=== PATIENT | male | born 1975 | race Caucasian/White ===

== ENCOUNTER 2021-01-07 14:22 | Outpatient (REF) | payer OTHER, SELFPAY ==
[2021-01-07 16:41] LABS: Hematocrit 38.6 % (42-52); Mean Corpuscular HGB Conc 33.7 g/dl (31.0-36.0); Mean Corpuscular Hemoglobin 30.9 pg (27.0-33.0); Mean Corpuscular Volume 91.7 fL (80-98); Mean Platelet Volume 10.5 fL (9.4-12.4); Platelet Count 228 X10*3/uL (160-400); Red Blood Count 4.21 X10*6/uL (4.60-5.80); Red Cell Distribution Width 13.2 % (11.0-16.0); White Blood Count 6.5 X10*3/uL (4.8-10.8)
[2021-01-07 17:08] LABS: Alanine Aminotransferase 22 U/L (0-40); Albumin Level 4.7 g/dL (3.5-5.0); Alkaline Phosphatase 58 U/L (39-117); Anion Gap 13 (12-20); Aspartate Amino Transferase 27 U/L (5-37); Bilirubin Total 1.1 mg/dL (0.0-1.0); Blood Urea Nitrogen 17 mg/dL (9-16); Calcium 9.6 mg/dL (8.4-10.2); Carbon Dioxide 27 mmol/L (22-29); Chloride 103 mmol/L (96-108); Cholesterol 235 mg/dL; Estimated Glomerular Filt Rate > 60; Glucose Fasting 87 mg/dL (60-99); HDL Cholesterol 54 mg/dL; LDL Cholesterol Calculated 170 mg/dl; Potassium 3.6 mmol/L (3.3-5.1); Sodium 139 mmol/L (135-145); Total Protein 7.5 g/dL (6.5-8.0); Triglycerides 57 mg/dL; Uric Acid 8.3 mg/dL (3.4-7.0)
== END 2021-01-07 14:23 | disposition home or self-care (01) ==
LOC: HO.HMGCLDS 14:22
PROVIDERS: PCP Internal Medicine; Visit Provider Internal Medicine
DX: E78.5 Hyperlipidemia, unspecified (principal); I10 Essential (primary) hypertension
CPT/HCPCS: 36415; 80053; 80061; 84550; 85027

== ENCOUNTER 2021-02-26 15:07 | Outpatient (REF) | payer OTHER, SELFPAY ==
--- NOTE | ~2021-02-26 | XR_ITS ---
EXAMINATION: XR THORACOLUMBAR SPINE CLINICAL INFORMATION: Back pain COMPARISON: None TECHNIQUE: AP and lateral views of the thoracic spine FINDINGS: Normal alignment and thoracic kyphosis with mild to moderate multilevel degenerative disc disease. No fracture. No bone lesion is evident. XR/XR thoracic spine 2V IMPRESSION: Mild to moderate multilevel degenerative disc disease. Normal alignment.
== END 2021-02-26 15:08 | disposition home or self-care (01) ==
LOC: HO.HMGCX 15:07
PROVIDERS: PCP Internal Medicine; Visit Provider Internal Medicine
DX: M54.9 Dorsalgia, unspecified (principal); R10.9 Unspecified abdominal pain
CPT/HCPCS: 72070

== ENCOUNTER 2021-03-06 09:47 | Outpatient (REF) | payer OTHER, SELFPAY ==
--- NOTE | ~2021-03-06 | US_ITS ---
EXAMINATION: US ABDOMEN COMPLETE CLINICAL INFORMATION: Abdominal pain. Left flank pain. COMPARISON: None TECHNIQUE: Real-time imaging of the abdominal viscera. FINDINGS: PANCREAS: Not well visualized. ABDOMINAL AORTA: The proximal, mid, and distal segments are normal in caliber. INFERIOR VENA CAVA: Visualized portions are normal. LIVER: Normal. The liver is normal in size. The liver contour is normal. Parenchymal echogenicity is normal. No focal hepatic lesion. There is no intrahepatic biliary duct dilatation seen. GALLBLADDER: Normal. The gallbladder is physiologically distended without evidence of stones, sludge, polyps, wall thickening or pericholecystic fluid. COMMON BILE DUCT: Normal in caliber measuring 0.31 cm in diameter. RIGHT KIDNEY: Normal. No hydronephrosis. No renal calculi or focal parenchymal lesions. The kidney measures 11.8 cm in maximum dimension. LEFT KIDNEY: Normal. No hydronephrosis. No renal calculi or focal parenchymal lesions. The kidney measures 11.3 cm in maximum dimension. SPLEEN: Normal. The spleen measures 10.9 cm in maximum dimension. FREE FLUID: None. US/US abdomen complete IMPRESSION: Limited visualization of the pancreas otherwise unremarkable exam. No renal stone seen.
== END 2021-03-06 09:48 | disposition home or self-care (01) ==
LOC: HO.HMGCX 09:47
PROVIDERS: PCP Internal Medicine; Visit Provider Internal Medicine
DX: R10.9 Unspecified abdominal pain (principal)
CPT/HCPCS: 76700

== ENCOUNTER 2021-03-26 06:21 | Outpatient (REF) | payer OTHER, SELFPAY ==
[2021-03-26 11:27] LABS: MANUAL DIFF FLAG NO
[2021-03-26 11:37] LABS: Basophils Percent Auto 0.3 % (0-2); Eosinophils Absolute Auto 0.1 X10*3/uL (0.0-0.4); Eosinophils Percent Auto 2.4 % (0-4); Hematocrit 38.5 % (42-52); Hemoglobin 12.9 g/dl (14.0-18.0); Imm Gran Abs Auto 0.01 X10*3/uL (0.00-0.03); Imm Gran Pct Auto 0.2 % (0.0-0.4); Lymphocytes Absolute Auto 2.3 X10*3/uL (1.2-4.9); Lymphocytes Percent Auto 39.5 % (20-40); Mean Corpuscular HGB Conc 33.5 g/dl (31.0-36.0); Mean Corpuscular Hemoglobin 30.4 pg (27.0-33.0); Mean Corpuscular Volume 90.8 fL (80-98); Monocytes Absolute Auto 0.4 X10*3/uL (0.1-1.2); Monocytes Percent Auto 6.8 % (2-11); Neutrophils Percent Auto 50.8 % (45-73); Platelet Count 221 X10*3/uL (160-400); Red Blood Count 4.24 X10*6/uL (4.60-5.80); Red Cell Distribution Width 12.7 % (11.0-16.0); White Blood Count 5.9 X10*3/uL (4.8-10.8)
[2021-03-26 11:58] LABS: Alanine Aminotransferase 26 U/L (0-40); Albumin Level 4.6 g/dL (3.5-5.0); Alkaline Phosphatase 62 U/L (39-117); Anion Gap 11 (12-20); Aspartate Amino Transferase 22 U/L (5-37); Bilirubin Total 1.2 mg/dL (0.0-1.0); Blood Urea Nitrogen 10 mg/dL (9-16); Calcium 9.1 mg/dL (8.4-10.2); Carbon Dioxide 27 mmol/L (22-29); Chloride 106 mmol/L (96-108); Cholesterol 213 mg/dL; Estimated Glomerular Filt Rate > 60; Glucose Fasting 101 mg/dL (60-99); HDL Cholesterol 51 mg/dL; LDL Cholesterol Calculated 146 mg/dl; Potassium 3.9 mmol/L (3.3-5.1); Sodium 140 mmol/L (135-145); Total Protein 7.5 g/dL (6.5-8.0); Triglycerides 83 mg/dL
== END 2021-03-26 06:22 | disposition home or self-care (01) ==
LOC: HO.HMGCLDS 06:21
PROVIDERS: PCP Internal Medicine; Visit Provider Internal Medicine
DX: E78.5 Hyperlipidemia, unspecified (principal); I10 Essential (primary) hypertension
CPT/HCPCS: 36415; 80053; 80061; 85025

== ENCOUNTER 2021-03-29 08:33 | Outpatient (REF) | payer OTHER, SELFPAY ==
--- NOTE | ~2021-03-29 | XR_ITS ---
EXAMINATION: XR KNEE, RIGHT CLINICAL INFORMATION: Right knee pain COMPARISON: June 08, 2018 TECHNIQUE: Four views of the right knee. FINDINGS: There is no evidence of acute fracture or dislocation of the right knee. There is a small right knee effusion. Right knee joint spaces are maintained. There is question of a lucent density within the lateral aspect of the patella but this has a similar appearance to study of June 08, 2018. XR/XR knee RT 4V IMPRESSION: Right knee effusion. No acute abnormality appreciated. Question stable low-density region within the patella of uncertain etiology.
== END 2021-03-29 08:34 | disposition home or self-care (01) ==
LOC: HO.HMGCLDS 08:33
PROVIDERS: PCP Internal Medicine; Visit Provider Internal Medicine
DX: M25.561 Pain in right knee (principal)
CPT/HCPCS: 73564

== ENCOUNTER → 2021-05-08 08:36 | Outpatient (REF) | payer OTHER, SELFPAY ==
--- NOTE | 2021-05-08 10:09 | CA_ITS ---
Acquisition Time: 2021-05-08 08:48:29 Total Exercise Time: 00:06:31 Test Indications: Chest Pain Medications: AMLODIPINE/LOSARTAN Protocol: SHELDON Max HR: 148 BPM 86% of Pred: 172 BPM Max BP: 220/090 mmHG Max Work Load: 7.7 METS Exercise stress test with exercise 6 min 31 sec of Sheldon protocol, without anginal symptoms, with sinus arrythmia and two multifocal venticular cuplets in recovery, with hypertensive response to exercise with max BP 220/90, without ST depressions, with T wave abnormalities at baseline which are more evident in recovery and include leads III, aVF, V4-V6. BP returned to 120/82 in recovery. He did not take his morning antihypertensive. Test reviewed with Dr To. Msg sent to Dr Hoang. Recommend stress echocardiogram for further evaluation. Referred By: Laila Hoang Overread By: LASHANDA FERNANDEZ
== END ==
LOC: HO.CARD 08:36
PROVIDERS: Visit Provider Internal Medicine
DX: R07.9 Chest pain, unspecified (principal)
CPT/HCPCS: 93017

== ENCOUNTER → 2021-06-12 08:42 | Outpatient (REF) | payer OTHER, SELFPAY ==
--- NOTE | ~2021-06-12 | NM_ITS ---
Exercise Myocardial perfusion study Indication: Chest pain to evaluate for myocardial ischemia Technique: The patient was brought in for an exercise perfusion study on 06/12/2021. Patient performed exercise as per Candido protocol and was injected 35 mCi of sestamibi was given intravenously one target HR was achieved. Images were obtained using the SPECT gamma camera interlaced with the gating device. Images were obtained in supine position. Resting perfusion study was performed on 06/13/2021. Patient was administered 35 mCi of sestamibi intravenously at rest. Images were then obtained in supine position. Images obtained with and without CT attenuation. Total DLP 131 mGy-cm. Images were processed with the software and compared side to side in short axis, horizontal long axis and vertical long axis views. Findings: The stress perfusion study showed nonattenuated images show mildly reduced uptake in the basal inferior and mid inferior wall of the LV myocardium. Remainder of the LV myocardium is normally perfused. Attenuation corrected images show normal uptake of radiotracer in all segments of LV myocardium. The gated study shows normal LV systolic function with calculated LVEF of 73%. LV cavity is normal in size. The gated study shows normal systolic wall thickening and contraction of all segments. There is no transient ischemic dilation. Resting study shows no change in perfusion pattern compared to stress perfusion study. Gating at rest reveals normal systolic wall motion with ejection fraction at 73%. The findings are consistent with normal myocardial perfusion. NM/NM eric perf SPECT rest & str Impression: 1. Normal myocardial perfusion 2. Gated LVEF is 73% 3. Transient ischemic dilatation not present Stress EKG is negative for ischemia
--- NOTE | 2021-06-12 08:45 | CA_ITS ---
Acquisition Time: 2021-06-12 08:57:19 Total Exercise Time: 00:07:00 Test Indications: Chest Pain Medications: Protocol: SHELDON Max HR: 160 BPM 93% of Pred: 172 BPM Max BP: 190/058 mmHG Max Work Load: 8.5 METS Exercise stress test with exercise 7 min of Sheldon protocol, without anginal symptoms, without arrythmia, with hypertensive response to exercise with max BP 190/58, without EKG changes meeting criteria for ischemia. In recovery his BP returned to baseline. Nuclear images pending. Test reviewed with Dr You. Referred By: Laila Hoang Overread By: LASHANDA FERNANDEZ
== END ==
LOC: HO.CARD 08:42
PROVIDERS: Visit Provider Internal Medicine
DX: R07.9 Chest pain, unspecified (principal)
CPT/HCPCS: 78452; 93017; A9500

== ENCOUNTER 2021-11-21 17:00 | Outpatient (RCR) | payer OTHER, SELFPAY ==
--- NOTE | 2021-10-28 18:12 | MHC.PT.EP ---
[facility] [place] Office [place] Office [place] Office [address] Harlan Jimenez [address] [phone] F: [phone] F: [phone] F: [phone] F: [phone] Physical Therapy Plan of Care Date of Evaluation: Date of Surgery: n/a Diagnosis: Pain in right knee Assessment: Pt is a pleasant 46yo M who presents to PT with R knee pain for ~8 months. Pt presents today with current impairments in pain, decreased hip strength, decreased eccentric quad strength, decreased balance, soft tissue restrictions, and impaired body mechanics with squatting. He is limited functionally by running, jumping, biking, and stair navigation. He is a good candidate for skilled PT in order to address current impairments to facilitate return to PLOF. He will be seen 2x/week for 4 weeks and will be reassessed at that time. 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 Manual therapy to restore motion and function. Therapeutic exercise to improve strength and flexibility. Neuromuscular re-education for posture and balance. Therapeutic activities to return to functional activities of daily living. Electronically signed by: Latanya Mcqueen, PT, DPT Please sign and return to therapist. Thank you for your referral.
--- NOTE | 2021-12-04 16:29 | MHC.PT.DC ---
[facility] [place] Office [place] Office [place] Office [address] Harlan Jimenez [address] [phone] F: [phone] F: [phone] F: [phone] F: [phone] Physical Therapy Discharge Report Diagnosis: Pain in right knee Date of Surgery: n/a Date of Evaluation: 10/28/21 Date of Discharge: 12/04/21 Treatments to Date: 8 Cancellations to Date: No Shows to Date: Discharge Status: Achieved Goals Improved Function Independent with HEP Discharge Summary: Pt was seen for PT from 10/28/21-11/21/21. Pt made excellent progress since SOC and has had a decrease in pain and increase in function. He met his STGs and LTGs. He improved his score on LEFI outcome measure from 37/80 on initial PT evaluation to 50/80 at discharge. He is I with his HEP. Pt is being D/C from skilled PT at this time. Electronically signed by: Latanya Mcqueen, PT, DPT Please sign and return to therapist. Thank you for your referral.
== END 2021-12-04 16:30 | disposition home or self-care (01) ==
LOC: HO.PT 17:00
PROVIDERS: PCP Internal Medicine; Visit Provider Internal Medicine
DX: M25.561 Pain in right knee (principal)
CPT/HCPCS: 97035; 97110; 97161; 97530

== ENCOUNTER → 2021-12-12 14:52 | Outpatient (BNVA) | payer OTHER, SELFPAY | PROVIDERS: PCP Internal Medicine; Visit Provider Surgery Vascular Surgery | DX: Z13.89 Encounter for screening for other disorder (principal) ==

== ENCOUNTER 2022-01-27 07:44 | Outpatient (REF) | payer OTHER, SELFPAY ==
--- NOTE | ~2022-01-27 | US_ITS ---
EXAMINATION: RIGHT and LEFT LOWER EXTREMITY VENOUS ULTRASOUND (Reflux Exam) CLINICAL INDICATION: leg pain and varicose veins. COMPARISON: None. TECHNIQUE: Color flow triplex imaging and compression Doppler was performed to evaluate both the deep and the superficial systems bilaterally. To evaluate the superficial system, the examination was performed in the upright position. Color-flow Doppler ultrasound and compression ultrasound were utilized. In addition, maneuvers were utilized to demonstrate reflux. FINDINGS: 1. DEEP VENOUS ULTRASOUND OF THE RIGHT LOWER EXTREMITY: Respiratory variation, normal compression and augmented flow are noted in the right common femoral vein as well as the right popliteal vein and there is no evidence of deep venous thrombosis at these locations. There is evidence of reflux in the deep system in the mid superficial femoral vein measuring 0.8 seconds. The common femoral and popliteal veins appear patent. Vein. There is no evidence of a Saxena's cyst. 2. SUPERFICIAL ULTRASOUND WITH DOPPLER OF RIGHT LOWER EXTREMITY: The right great saphenous vein at the saphenofemoral junction measures 0.4 mm, at the mid thigh not seen, ggikc-svd-yzlb 0.2 mm, oobag-icq-gufj not seen, at mid calf 0.3 mm and at the ankle measures 0.3 mm. There is no reflux demonstrated in the right great saphenous vein. The right small saphenous vein measures 2-3 mm and shows no reflux. There is a cabinet installer at the knee that measures 2 mm and does not demonstrate reflux. There is a varicosity in the proximal thigh that measures 3 mm and does not demonstrate reflux. 3. DEEP VENOUS ULTRASOUND OF THE LEFT LOWER EXTREMITY: Respiratory variation, normal compression and augmented flow are noted in the left common femoral vein as well as the left popliteal vein and there is no evidence of deep venous thrombosis at these locations. There is evidence of reflux in the deep system in the popliteal vein measuring 1.6 seconds. The common femoral and superficial femoral veins are patent. There is no evidence of a Saxena's cyst. 4. SUPERFICIAL ULTRASOUND WITH DOPPLER OF LEFT LOWER EXTREMITY: Left great saphenous vein at the saphenofemoral junction measures 7 mm, at the mid thigh 4 mm, dzrul-kjo-wtbx 2 mm, xhejk-xgg-mzhw 2 mm, at mid calf 2 mm and at the ankle measures 3 mm. There is reflux demonstrated in the left great saphenous vein measuring 1.4 seconds in the proximal thigh, 3 seconds below the knee 1.5 seconds calf.. The left small saphenous vein measures 2-3 mm and shows no reflux. There are perforators in the thigh measuring 3 mm that does not demonstrate reflux in the distal calf measuring 2 mm that demonstrate 2.9 seconds reflux. US/US venous duplex LE BI IMPRESSION: Right: No DVT. Deep venous reflux in the mid femoral vein measuring 0.8 seconds. No greater saphenous vein reflux seen. Left: No DVT. Deep venous reflux in the left popliteal vein measuring 1.6 seconds. Left greater saphenous vein reflux and reflux in a cabinet installer in the distal calf.
== END 2022-01-27 07:45 | disposition home or self-care (01) ==
LOC: HO.US 07:44
PROVIDERS: PCP Internal Medicine; Visit Provider Surgery Vascular Surgery
DX: I83.11 Varicose veins of right lower extremity with inflammation (principal)
CPT/HCPCS: 93970

== ENCOUNTER → 2022-02-21 08:32 | Outpatient (BNVA) | payer OTHER, SELFPAY | PROVIDERS: PCP Internal Medicine; Visit Provider Surgery Vascular Surgery | DX: I83.12 Varicose veins of left lower extremity with inflammation (principal) | CPT/HCPCS: 36475 ==

== ENCOUNTER 2022-02-24 14:57 | Outpatient (REF) | payer OTHER, SELFPAY ==
--- NOTE | ~2022-02-24 | US_ITS ---
EXAMINATION: US VENOUS ULTRASOUND WITH DOPPLER LOWER EXTREMITY, LEFT CLINICAL INFORMATION: Post RFA 02/21/2022 COMPARISON: Previous exam January 2022 TECHNIQUE: Ultrasound of the deep veins is performed from the hip to the calf with compression sonography and color and pulse Doppler assessment. Spectral analysis with color-flow imaging is performed. FINDINGS: There is normal venous compression and respiratory variation and augmented flow. The visualized common femoral vein, superficial femoral vein, profunda femoral vein, popliteal vein, and the trifurcation region shows no evidence of deep venous thrombosis. There is echogenic material seen in the left greater saphenous vein post RF procedure. This is 1 cm from the saphenofemoral junction. The left greater saphenous vein appears closed. There is no significant popliteal fossa cyst. US/US venous duplex LE LT IMPRESSION: No DVT demonstrated in the left lower extremity.
== END 2022-02-24 14:58 | disposition home or self-care (01) ==
LOC: HO.US 14:57
PROVIDERS: Visit Provider Surgery Vascular Surgery
DX: M79.605 Pain in left leg (principal)
CPT/HCPCS: 93971

== ENCOUNTER 2022-03-26 12:14 | Outpatient (REF) | payer OTHER, SELFPAY ==
[2022-03-26 13:48] LABS: Hematocrit 39.3 % (42.0-52.0); Hemoglobin 13.2 g/dl (14.0-18.0); Mean Corpuscular HGB Conc 33.6 g/dl (31.0-36.0); Mean Corpuscular Hemoglobin 30.6 pg (27.0-33.0); Mean Corpuscular Volume 91.2 fL (80.0-98.0); Mean Platelet Volume 10.8 fL (9.4-12.4); Platelet Count 252 X10*3/uL (160-400); Red Blood Count 4.31 X10*6/uL (4.60-5.80); Red Cell Distribution Width 12.8 % (11.0-16.0); White Blood Count 5.1 X10*3/uL (4.8-10.8)
[2022-03-26 14:03] LABS: Appearance Urine CLEAR; Color Urine YELLOW; Glucose Urine UA NEG (NEG); Leukocyte Esterase Urine NEG (NEG); Nitrite Urine NEG (NEG); Specific Gravity - Urine 1.015 (1.005-1.025); Urine Blood NEG (NEG); Urine Ketones NEG (NEG); Urine Protein NEG (NEG-TRACE)
[2022-03-26 14:13] LABS: RBC Urine 0 /HPF (0); WBC Urine 0-2 /HPF (0-4)
[2022-03-26 14:25] LABS: Alanine Aminotransferase 27 U/L (0-40); Albumin Level 4.7 g/dL (3.5-5.0); Alkaline Phosphatase 50 U/L (39-117); Anion Gap 14 (12-20); Aspartate Amino Transferase 21 U/L (5-37); Bilirubin Total 0.6 mg/dL (0.0-1.0); Blood Urea Nitrogen 16 mg/dL (9-16); Calcium 9.5 mg/dL (8.4-10.2); Carbon Dioxide 25 mmol/L (22-29); Chloride 103 mmol/L (96-108); Cholesterol 268 mg/dL; Estimated Glomerular Filt Rate > 60; Glucose Fasting 95 mg/dL (60-99); HDL Cholesterol 46 mg/dL; LDL Cholesterol Calculated 210 mg/dl; Potassium 4.2 mmol/L (3.3-5.1); Sodium 138 mmol/L (135-145); Total Protein 7.7 g/dL (6.5-8.0); Triglycerides 62 mg/dL
== END 2022-03-26 12:15 | disposition home or self-care (01) ==
LOC: HO.HMGCLDS 12:14
PROVIDERS: PCP Internal Medicine; Visit Provider Internal Medicine
DX: E78.5 Hyperlipidemia, unspecified (principal); I10 Essential (primary) hypertension
CPT/HCPCS: 36415; 80053; 80061; 81001; 85027

== ENCOUNTER 2022-06-05 13:43 | Outpatient (REF) | payer OTHER, SELFPAY ==
--- NOTE | ~2022-06-05 | XR_ITS ---
EXAMINATION: XR LUMBOSACRAL SPINE CLINICAL INFORMATION: Pain COMPARISON: None TECHNIQUE: Three views of the lumbosacral spine. FINDINGS: Bone alignment is normal. No fracture or dislocation. Mild spondylosis at L2-L3 and L3-L4. Normal disc spaces. Normal paraspinal soft tissues. XR/XR lumbar spine 2-3V IMPRESSION: Mild degenerative spondylosis at L2-L3 and L3-L4.
[2022-06-05 17:08] LABS: Alanine Aminotransferase 19 U/L (0-40); Albumin Level 4.9 g/dL (3.5-5.0); Alkaline Phosphatase 53 U/L (39-117); Anion Gap 17 (12-20); Aspartate Amino Transferase 17 U/L (5-37); Bilirubin Total 0.7 mg/dL (0.0-1.0); Blood Urea Nitrogen 16 mg/dL (9-16); Calcium 9.5 mg/dL (8.4-10.2); Carbon Dioxide 24 mmol/L (22-29); Chloride 105 mmol/L (96-108); Cholesterol 250 mg/dL; Estimated Glomerular Filt Rate > 60; Glucose Fasting 100 mg/dL (60-99); HDL Cholesterol 54 mg/dL; LDL Cholesterol Calculated 182 mg/dl; Sodium 142 mmol/L (135-145); Total Protein 7.9 g/dL (6.5-8.0); Triglycerides 71 mg/dL
== END 2022-06-05 13:44 | disposition home or self-care (01) ==
LOC: HO.HMGCX 13:43
PROVIDERS: PCP Internal Medicine; Visit Provider Internal Medicine
DX: M54.9 Dorsalgia, unspecified (principal); E78.5 Hyperlipidemia, unspecified; I10 Essential (primary) hypertension
CPT/HCPCS: 36415; 72100; 80053; 80061

== ENCOUNTER 2023-11-03 13:33 | Outpatient (AMB) | payer OTHER, SELFPAY ==
[2023-11-03 13:35] VITALS: BP 128/80; PULSE 84; O2SAT 96; BMI 31.8
--- NOTE | 2023-11-03 13:35 | MHC.PC.OV ---
Vital Signs 11/03/23 13:35 Height 6 ft 2 in Weight 248 lb BMI 31.8 BP 128/80 Blood Pressure Location Rt brachial Position Sitting Pulse 84 Pulse Source Pulse Oximeter Pulse Oximetry (%) 96 Oxygen Delivery Method Room Air Intake Visit Reasons: ? of Hernia Intake Note: Pt is here today for a sick visit. Pt c/o L lower abdominal pain. Allergies pravastatin Adverse Reaction (Intermediate, Verified 11/03/23 13:36) Muscle cramps, abd pain Medication List - Last Reconciled 11/03/23 by Laila Hoang MD amlodipine-olmesartan 5-20 mg 1 tab PO BID Tobacco use date assessed: 11/03/23 Dental Screening Dental Screen Date: 11/03/23 Did you have a dental visit in the last 12 months?: Yes Did you have a dental problem in the last 6 months where you did not have access to dental care?: No Was dental information given to patient?: Patient has dentist HPI ? of Hernia HPI Details Pt c/o L groin constant pain for 3 weeks after lifting heavy object. Patient had left inguinal hernia repair a few years ago. He denies nausea vomiting change in bowel habits fever chills constipation diarrhea. Hypertension is controlled on current medications COUNT INCLUDES THE [facility] Medical History Venous insufficiency Flank pain Chest pain Annual physical exam Knee pain, right Left flank pain Mid-back pain, acute Gout Hyperlipidemia HTN (hypertension) Family History Father No problems noted. Mother No problems noted. Social History Housing: House Alcohol intake: current Alcohol intake frequency: holidays/special occasions only Patient Tobacco Use Status: Never used Tobacco e-Cigarette/Vaping Use: Never Used Second Hand Smoke Exposure: No service: No Current occupational status: employed Current occupational exposures/hazards: No Cognitive needs: No Hearing needs: No Vision needs: No Questionnaire PHQ-9 Over the last 2 weeks, how often have you been bothered by any of the following problems? 1. Little interest or pleasure in doing things: not at all 2. Feeling down, depressed, or hopeless: not at all 3. Trouble falling or staying asleep, or sleeping too much: not at all 4. Feeling tired or having little energy: not at all 5. Poor appetite or overeating: not at all 6. Feeling bad about yourself - or that you are a failure or have let yourself or your family down: not at all 7. Trouble concentrating on things, such as reading the newspaper or watching television: not at all 8. Moving or speaking so slowly that other people could have noticed. Or the opposite - being so fidgety or restless that you have been moving around a lot more than usual: not at all 9. Thoughts that you would be better off or of hurting yourself in some way: not at all Total score: 0 Depression Screening Interpretation: Negative Depression Screening Done: Yes 39772 - PHQ-9 Billing: Yes Source: Developed by Drs. Ryan Greco, Avis Rader, Logan Manrique and colleagues, with an educational aleksey from [employer]. Thrive Questionnaire Date Thrive assessed: 11/03/23 I am a: Patient What is your living situation today?: I have a steady place to live Within the past 12 months, did the food you bought not last and you didn't have the money to get more?: Never true Within the past 12 months, did you worry whether your food would run out before you got money to buy more?: Never true Do you have trouble paying for medicines?: No Do you have trouble getting transportation to medical appointments?: No Do you have trouble paying your heating and electricity bill?: No Do you have trouble taking care of your child, family member or friend?: No Do you have trouble with day-to-day activities such as bathing, preparing meals, shopping, managing finances, etc.?: No Are you currently unemployed and looking for a job?: No Are you interested in more education?: No Please select the resources that you would like help with: None THRIVE Score: 0 AUDIT C Alcohol Use Questionnaire (AUDIT-C) 1. How often do you have a drink containing alcohol?: Monthly or less 2. How many drinks containing alcohol do you have on a typical day when you are drinking?: 1 or 2 3. How often do you have six or more drinks on one occasion?: Never Total Score: 1 RADU-7 AMB Questionnaire RADU-7 Date RADU - 7 assessed: 11/03/23 Feeling nervous, anxious, or on edge: 0 = Not at all Not being able to stop or control worryin = Not at all Worrying too much about different things: 0 = Not at all Trouble relaxin = Not at all Being so restless that it is hard to sit still: 0 = Not at all Becoming easily annoyed or irritable: 0 = Not at all Feeling afraid as if something awful might happen: 0 = Not at all Total RADU-7 score (0-4 normal; 5-9 mild; 10-14 moderate; 15-21 severe): 0 Source: Developed by Drs. Ryan Greco, Avis Rader, Logan Manrique and colleagues, with an educational aleksey from [employer]. RADU-7 Assessment Billing RADU-7 Assessment Tool: RADU-7 Assessment 27955 Review of Systems Const All systems reviewed & are unremarkable except as noted in HPI and below Reports no additional complaints Eyes Reports no additional complaints ENT Reports no additional complaints Card Reports no additional complaints Resp Reports no additional complaints GI Reports no additional complaints Reports no additional complaints Physical exam (Primary Care) Vital Signs: Last Vital Signs Pulse 84 11/03/23 13:35 BP 128/80 11/03/23 13:35 Pulse Ox 96 11/03/23 13:35 Oxygen Delivery Method Room Air 11/03/23 13:35 BMI result Body Mass Index 31.8 Tobacco/Smoking Status: Tobacco use Status Tobacco use date assessed 11/03/23 11/03/23 13:37 Patient Tobacco Use Status Never used Tobacco 11/03/23 13:37 e-Cigarette/Vaping Use Never Used 11/03/23 13:37 PHQ-9: PHQ-9 Score PHQ-9: Total score 0 11/03/23 13:50 Depression Screening Interpretation: Negative Thrive Assessment: Date of Thrive Assessment Date Thrive assessed 11/03/23 11/03/23 13:49 Const General: no acute distress HENMT Head: Yes normal to inspection Eyes General: appearance normal, both eyes and all related structures Neck Neck: Yes no lymphadenopathy and Yes supple Resp Effort & Inspection: normal respiratory effort Auscultation: clear to auscultation bilaterally Cardio Rhythm: regular rhythm Heart sounds: S1 normal heart sound present and S2 normal heart sound present GI Other: Left inguinal area slight tenderness no erythema or swelling Inspection: Yes normal to inspection Palpation (GI): Soft to palpation Percussion: Yes normal to percussion Auscultation: normal bowel sounds Assessment and Plan Assessment & Plan (1) Inguinal hernia of left side without obstruction or gangrene: Code(s): K40.90 - Unilateral inguinal hernia, without obstruction or gangrene, not specified as recurrent Plan: For recurrent left inguinal area tenderness at the place of hernia repair , patient will be referred to a surgeon (2) Hyperlipidemia: Code(s): E78.5 - Hyperlipidemia, unspecified Plan: Continue low-cholesterol diet return for fasting blood work (3) HTN (hypertension): Code(s): I10 - Essential (primary) hypertension Plan: Continue current medications (4) Annual physical exam: Code(s): Z00.00 - Encounter for general adult medical examination without abnormal findings (5) H/O left inguinal hernia repair: Code(s): Z98.890 - Other specified postprocedural states; Z87.19 - Personal history of other diseases of the digestive system Orders: Orders Lipid Panel 1 Month E78.5 - Hyperlipidemia, unspecified, I10 - Essential (primary) hypertension, Z00.00 - Encounter for general adult medical examination without abnormal findings UA w Microscopic 1 Month E78.5 - Hyperlipidemia, unspecified, I10 - Essential (primary) hypertension, Z00.00 - Encounter for general adult medical examination without abnormal findings Comprehensive [place]. Panel Fast 1 Month E78.5 - Hyperlipidemia, unspecified, I10 - Essential (primary) hypertension, Z00.00 - Encounter for general adult medical examination without abnormal findings Complete Blood Count Auto Diff 1 Month E78.5 - Hyperlipidemia, unspecified, I10 - Essential (primary) hypertension, Z00.00 - Encounter for general adult medical examination without abnormal findings TSH reflex Free T4 1 Month E78.5 - Hyperlipidemia, unspecified, I10 - Essential (primary) hypertension, Z00.00 - Encounter for general adult medical examination without abnormal findings PSA,Total (Free>4and<10) 1 Month E78.5 - Hyperlipidemia, unspecified, I10 - Essential (primary) hypertension, Z00.00 - Encounter for general adult medical examination without abnormal findings Referrals General Surgery Referral K40.90 - Unilateral inguinal hernia, without obstruction or gangrene, not specified as recurrent Coding Level of Care Code Est Pt Level 4 (77856) Diagnoses Inguinal hernia of left side without obstruction or gangrene K40.90 Hyperlipidemia E78.5 HTN (hypertension) I10 Annual physical exam Z00.00 H/O left inguinal hernia repair Z98.890; Z87.19 Additional Codes RADU-7 Assessment Billing - RADU-7 Assessment Tool: RADU-7 Assessment 17151 ([id number])
== END 2023-11-03 15:07 | disposition home or self-care (01) ==
PROVIDERS: PCP Internal Medicine; Visit Provider Internal Medicine
DX: K40.90 Unilateral inguinal hernia, without obstruction or gangrene, not specified as recurrent (principal); E78.5 Hyperlipidemia, unspecified; I10 Essential (primary) hypertension; Z00.00 Encounter for general adult medical examination without abnormal findings; Z98.890 Other specified postprocedural states; Z87.19 Personal history of other diseases of the digestive system
CPT/HCPCS: 99214

== ENCOUNTER 2023-11-18 12:37 | Outpatient (AMB) | payer OTHER, SELFPAY ==
[2023-11-18 12:47] VITALS: BP 139/73; PULSE 64; BMI 32.2
--- NOTE | 2023-11-18 12:47 | A.OFFVIS_ITS ---
Intake Vital Signs 11/18/23 12:47 Height 6 ft 2 in Weight 251 lb BMI 32.2 BP 139/73 Blood Pressure Location Rt brachial Position Sitting Pulse 64 Intake Visit Reasons: Unilateral inguinal hernia Intake Note: Patient referred by PCP Dr. Hoang for unilateral inguinal hernia. Patient c/o: Rt and lt groin pain that gets worse with heavy lifting. Reports pain started 5-6wks. Patient reports hx of lt hernia repair about 12 yrs. Hospice Plan Administrator Required: No Accompanied by: Self / Same As Patient Allergies pravastatin Adverse Reaction (Intermediate, Verified 11/18/23 12:47) Muscle cramps, abd pain HPI HPI Comments History of Present Illness Details Patient had a left inguinal hernia repair many years ago an outside facility. He presents here now because approximately 7 weeks ago he was doing heavy lifting at his place of employment and developed bilateral groin pain left greater than right. He had no other GI issues or complaints. He has not noticed any bulge or swelling. With the last few weeks time he is undergoing light duty and his symptoms have markedly improved. Patient presents here for further evaluation to rule out recurrent left hernia. Chart was reviewed and patient evaluated [facility] Medical History Venous insufficiency Flank pain Chest pain Annual physical exam Knee pain, right Left flank pain Mid-back pain, acute Gout Hyperlipidemia HTN (hypertension) Surgical History (Updated 11/18/23 @ 13:37 by Niall Rdz MD) H/O left inguinal hernia repair Family History Father No problems noted. Mother No problems noted. Social History (Updated 11/18/23 @ 12:57 by ABY Cevallos) Housing: House Alcohol intake: current Alcohol intake frequency: holidays/special occasions only Alcohol type: beer Patient Tobacco Use Status: Never used Tobacco e-Cigarette/Vaping Use: Never Used Second Hand Smoke Exposure: No service: No Current occupational status: employed Current occupational exposures/hazards: No Cognitive needs: No Hearing needs: No Vision needs: No Physical Exam Vital Signs: Last Vital Signs Pulse 64 11/18/23 12:47 BP 139/73 11/18/23 12:47 BMI result Body Mass Index 32.2 GI Other: Patient was examined both supine and standing with Valsalva. Corpulent abdomen. Right groin negative. Genitalia within normal limits. Left groin demonstrates some mild tenderness but no obvious hernia demonstrated. Assessment & Plan Assessment & Plan (1) H/O left inguinal hernia repair: Comment: [facility] 14 yrs ago Code(s): Z98.890 - Other specified postprocedural states; Z87.19 - Personal history of other diseases of the digestive system Plan: At present, I think the patient has a muscle/groin pull or strain. His symptoms are improving and exam is otherwise negative. The current plan is that the patient can light duty at his place of employment and he will otherwise follow- up p.r.n.. Should his since progress or worsen, he has been instructed to c ontact me and further interventions will be considered including CT scan. At present, conservative therapy all questions answered. (2) Left groin pain: Code(s): R10.32 - Left lower quadrant pain Plan: See above Coding Level of Care Code New Pt Level 4 (91427) Diagnoses H/O left inguinal hernia repair Z98.890; Z87.19 Left groin pain R10.32
== END 2023-11-18 13:18 | disposition home or self-care (01) ==
PROVIDERS: PCP Internal Medicine; Referring Provider Internal Medicine; Visit Provider Surgery
DX: Z98.890 Other specified postprocedural states (principal); Z87.19 Personal history of other diseases of the digestive system; R10.32 Left lower quadrant pain
CPT/HCPCS: 99204

== ENCOUNTER → 2023-11-18 12:37 | Outpatient (BNVA) | payer OTHER, SELFPAY | PROVIDERS: PCP Internal Medicine; Referring Provider Internal Medicine; Visit Provider Surgery ==

== ENCOUNTER 2023-12-02 14:14 | Outpatient (AMB) | payer OTHER, SELFPAY ==
--- NOTE | 2023-12-02 14:27 | MHC.OFFVIS ---
Intake Vital Signs 12/02/23 14:31 Height 6 ft 2 in Weight 251 lb BMI 32.2 BP 140/73 H Blood Pressure Location Rt brachial Position Sitting Pulse 68 Intake Visit Reasons: pain, discuss CT-Scan Intake Note: Patient scheduled todays appointment to discuss CT scan. Patient c/o: LLQ pain not better. 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 No other GI issues or complaints. Because of persistence, he presents here for further evaluation have been seen a few weeks ago. [facility] Medical History Venous insufficiency Flank pain Chest pain Annual physical exam Knee pain, right Left flank pain Mid-back pain, acute Gout Hyperlipidemia HTN (hypertension) Surgical History H/O left inguinal hernia repair Family History Father No problems noted. Mother No problems noted. Social History Housing: House Alcohol intake: current Alcohol intake frequency: holidays/special occasions only Alcohol type: beer Patient Tobacco Use Status: Never used Tobacco e-Cigarette/Vaping Use: Never Used Second Hand Smoke Exposure: No service: No Current occupational status: employed Current occupational exposures/hazards: No Cognitive needs: No Hearing needs: No Vision needs: No Physical Exam Vital Signs: Last Vital Signs Pulse 68 12/02/23 14:31 BP 140/73 H 12/02/23 14:31 BMI result Body Mass Index 32.2 GI Other: Patient examined standing with bilateral groin exam demonstrated no obvious hernias. Genitalia within normal limits. Patient has moderately corpulent and this may conceal underlying occult hernia. Assessment & Plan Assessment & Plan (1) Left groin pain: Code(s): R10.32 - Left lower quadrant pain Plan: Current plan is to obtain a CT scan abdomen pelvis to rule out hernia or other reason for the patient's persistent worsening left groin pain. Arrangements were made for this. Patient will see me after the study. All questions answered. (2) H/O left inguinal hernia repair: Comment: [facility] [place] 14 yrs ago Code(s): Z98.890 - Other specified postprocedural states; Z87.19 - Personal history of other diseases of the digestive system Plan: See above Plan See above Orders: Orders CT abdomen pelvis wo/w IV con Today R10.32 - Left lower quadrant pain, Z87.19 - Personal history of other diseases of the digestive system, Z98.890 - Other specified postprocedural states Coding Level of Care Code Est Pt Level 4 (93200) Diagnoses Left groin pain R10.32 H/O left inguinal hernia repair Z98.890; Z87.19
[2023-12-02 14:31] VITALS: BP 140/73; PULSE 68; BMI 32.2
== END 2023-12-02 14:39 | disposition home or self-care (01) ==
PROVIDERS: PCP Internal Medicine; Visit Provider Surgery
DX: R10.32 Left lower quadrant pain (principal); Z98.890 Other specified postprocedural states; Z87.19 Personal history of other diseases of the digestive system
CPT/HCPCS: 99214

== ENCOUNTER → 2023-12-02 14:14 | Outpatient (BNVA) | payer OTHER, SELFPAY | PROVIDERS: PCP Internal Medicine; Visit Provider Surgery ==

== ENCOUNTER 2023-12-10 08:23 | Outpatient (REF) | payer OTHER, SELFPAY ==
[2023-12-10 10:23] LABS: MANUAL DIFF FLAG NO
[2023-12-10 10:36] LABS: Appearance Urine Clear; Color Urine Yellow; Glucose Urine UA Negative (Negative); Leukocyte Esterase Urine Negative (Negative); Nitrite Urine Negative (Negative); PH 5.5 (5.0-9.0); Urine Blood Negative (Negative); Urine Ketones Negative (Negative); Urine Protein Negative (Neg-Trace)
[2023-12-10 10:45] LABS: Bacteria Urine None Seen (None Seen); Hyaline Casts Urine 0-2 /LPF (0-2); RBC Urine 0-2 /HPF (0-2); Squamous Epithelial Cell Urine 0-2 /HPF (0-2); WBC Urine 0-5 /HPF (0-5)
[2023-12-10 10:46] LABS: Basophils Percent Auto 0.7 % (0-2); Eosinophils Absolute Auto 0.1 X10*3/uL (0.0-0.4); Eosinophils Percent Auto 1.6 % (0-4); Hematocrit 40.2 % (42.0-52.0); Hemoglobin 13.4 g/dl (14.0-18.0); Imm Gran Abs Auto 0.01 X10*3/uL (0.00-0.03); Imm Gran Pct Auto 0.2 % (0.0-0.4); Lymphocytes Absolute Auto 1.9 X10*3/uL (1.2-4.9); Lymphocytes Percent Auto 42.8 % (20-40); Mean Corpuscular HGB Conc 33.3 g/dl (31.0-36.0); Mean Corpuscular Hemoglobin 30.3 pg (27.0-33.0); Mean Platelet Volume 11.2 fL (9.4-12.4); Monocytes Absolute Auto 0.5 X10*3/uL (0.1-1.2); Monocytes Percent Auto 10.2 % (2-11); Neutrophils Percent Auto 44.5 % (45-73); Platelet Count 230 X10*3/uL (160-400); Red Blood Count 4.42 X10*6/uL (4.60-5.80); White Blood Count 4.4 X10*3/uL (4.8-10.8)
[2023-12-10 11:03] LABS: Alanine Aminotransferase 40 U/L (0-40); Albumin Level 4.7 g/dL (3.5-5.0); Alkaline Phosphatase 51 U/L (39-117); Anion Gap 10 (12-20); Aspartate Amino Transferase 31 U/L (5-37); Bilirubin Total 0.5 mg/dL (0.0-1.0); Blood Urea Nitrogen 13 mg/dL (9-16); Calcium 9.6 mg/dL (8.4-10.2); Carbon Dioxide 26 mmol/L (22-29); Chloride 108 mmol/L (96-108); Cholesterol 225 mg/dL (<200); Estimated Glomerular Filt Rate > 60; Glucose Fasting 101 mg/dL (60-99); HDL Cholesterol 50 mg/dL (>40); LDL Cholesterol Calculated 162 mg/dL (<100); Potassium 4.2 mmol/L (3.3-5.1); Sodium 140 mmol/L (135-145); Total Protein 7.9 g/dL (6.5-8.0); Triglycerides 69 mg/dL (<150)
[2023-12-10 11:04] LABS: PSA,Total (Free>4and<10) 2.21 ng/mL (0.00-4.00)
[2023-12-10 11:09] LABS: TSH reflex Free T4 2.01 uIU/mL (0.32-4.0)
== END 2023-12-10 08:24 | disposition home or self-care (01) ==
LOC: HO.HMGCLDS 08:23
PROVIDERS: PCP Internal Medicine; Visit Provider Internal Medicine
DX: Z00.00 Encounter for general adult medical examination without abnormal findings (principal); Z12.5 Encounter for screening for malignant neoplasm of prostate; I10 Essential (primary) hypertension; E78.5 Hyperlipidemia, unspecified
CPT/HCPCS: 36415; 80053; 80061; 81001; 84153; 84443; 85025

== ENCOUNTER 2023-12-16 08:50 | Outpatient (AMB) | payer OTHER, SELFPAY ==
[2023-12-16 08:52] VITALS: BP 120/74; PULSE 67; O2SAT 96; BMI 31.5
--- NOTE | 2023-12-16 08:52 | A.OFFPC_ITS ---
Vital Signs 12/16/23 08:52 Height 6 ft 2 in Weight 245 lb BMI 31.5 BP 120/74 Blood Pressure Location Rt brachial Position Sitting Pulse 67 Pulse Source Pulse Oximeter Pulse Oximetry (%) 96 Oxygen Delivery Method Room Air Intake Visit Reasons: Physical exam Intake Note: Pt is here today for PE. Allergies pravastatin Adverse Reaction (Intermediate, Verified 12/16/23 08:54) Muscle cramps, abd pain Medication List - Last Reconciled 12/16/23 by Laila Hoang MD amlodipine-olmesartan 5-20 mg 1 tab PO BID Tobacco use date assessed: 12/16/23 Dental Screening Dental Screen Date: 11/03/23 HPI Physical exam HPI Details Pt presents for PE. [facility], [facility] Medical History (Updated 12/16/23 @ 09:22 by Laila Hoang MD) Venous insufficiency Flank pain Chest pain Annual physical exam Knee pain, right Left flank pain Mid-back pain, acute Gout Hyperlipidemia HTN (hypertension) Surgical History H/O left inguinal hernia repair Family History Father No problems noted. Mother No problems noted. Social History Housing: House Alcohol intake: current Alcohol intake frequency: holidays/special occasions only Alcohol type: beer Patient Tobacco Use Status: Never used Tobacco e-Cigarette/Vaping Use: Never Used Second Hand Smoke Exposure: No service: No Current occupational status: employed Current occupational exposures/hazards: No Cognitive needs: No Hearing needs: No Vision needs: No Questionnaire Thrive Questionnaire Date Thrive assessed: 11/03/23 RADU-7 AMB Questionnaire RADU-7 Date RADU - 7 assessed: 11/03/23 Source: Developed by Drs. Ryan Greco, Avis Rader, Logan Manrique and colleagues, with an educational aleksey from [employer]). Review of Systems Const All systems reviewed & are unremarkable except as noted in HPI and below Reports no additional complaints Eyes Reports no additional complaints ENT Reports no additional complaints Card Reports no additional complaints Resp Reports no additional complaints GI Reports no additional complaints Reports no additional complaints Physical exam (Primary Care) Vital Signs: Last Vital Signs Pulse 67 12/16/23 08:52 BP 120/74 12/16/23 08:52 Pulse Ox 96 12/16/23 08:52 Oxygen Delivery Method Room Air 12/16/23 08:52 BMI result Body Mass Index 31.5 Tobacco/Smoking Status: Tobacco use Status Tobacco use date assessed 12/16/23 12/16/23 08:56 Patient Tobacco Use Status Never used Tobacco 12/16/23 08:56 e-Cigarette/Vaping Use Never Used 12/16/23 08:56 Thrive Assessment: Date of Thrive Assessment Date Thrive assessed 11/03/23 12/16/23 08:56 Const General: no acute distress HENMT Head: Yes normal to inspection Ears: hearing grossly normal bilaterally General nose exam: Normal external nose present Face and sinus: Yes normal facial exam Throat: Yes posterior oropharynx normal Eyes General: appearance normal, both eyes and all related structures Neck Neck: Yes no lymphadenopathy and Yes supple Resp Effort & Inspection: normal respiratory effort Auscultation: clear to auscultation bilaterally Cardio Rhythm: regular rhythm Heart sounds: S1 normal heart sound present and S2 normal heart sound present GI Inspection: Yes normal to inspection Palpation (GI): Soft to palpation Percussion: Yes normal to percussion Auscultation: normal bowel sounds Assessment and Plan Assessment & Plan (1) HTN (hypertension): Code(s): I10 - Essential (primary) hypertension Plan: Continue current medications (2) Hyperlipidemia: Comment: Patient refuses medications Code(s): E78.5 - Hyperlipidemia, unspecified Plan: Low-cholesterol diet increase physical activity weight loss discussed with the patient. He could not tolerate fish oil because of acute gout. Patient will try flaxseed oil. (3) Annual physical exam: Code(s): Z00.00 - Encounter for general adult medical examination without abnormal findings Plan: Well-balanced diet regular exercise weight loss discussed with the patient. He will be referred to GI for colonoscopy. Patient follows up with the surgeon for left groin pain will have a scan to evaluate for hernia Orders: Orders Lipid Panel 1 Year E78.5 - Hyperlipidemia, unspecified, I10 - Essential (primary) hypertension PSA,Total (Free>4and<10) 1 Year E78.5 - Hyperlipidemia, unspecified, I10 - Essential (primary) hypertension Complete Blood Count Auto Diff 1 Year E78.5 - Hyperlipidemia, unspecified, I10 - Essential (primary) hypertension Comprehensive [place]. Panel Fast 1 Year E78.5 - Hyperlipidemia, unspecified, I10 - Essential (primary) hypertension Referrals Gastroenterology Referral E78.5 - Hyperlipidemia, unspecified, I10 - Essential (primary) hypertension, Z00.00 - Encounter for general adult medical examination without abnormal findings Coding Level of Care Code Est Pt Prev Care 40-64y(34892) Diagnoses HTN (hypertension) I10 Hyperlipidemia E78.5 Annual physical exam Z00.00
== END 2023-12-16 09:30 | disposition home or self-care (01) ==
PROVIDERS: PCP Internal Medicine; Visit Provider Internal Medicine
DX: I10 Essential (primary) hypertension (principal); E78.5 Hyperlipidemia, unspecified; Z00.00 Encounter for general adult medical examination without abnormal findings
CPT/HCPCS: 99396

== ENCOUNTER 2023-12-21 15:59 | Outpatient (REF) | payer OTHER, SELFPAY ==
--- NOTE | ~2023-12-21 | US_ITS ---
EXAMINATION: US PELVIS, LIMITED/FOLLOW UP CLINICAL INFORMATION: Left lower quadrant pain. COMPARISON: None available. TECHNIQUE: Targeted ultrasound images were obtained by the division sales manager of the area of concern as indicated by the patient in the left lower quadrant/body. Radiologist was not in attendance. Images were later provided for interpretation. FINDINGS: Targeted ultrasound images were obtained by the division sales manager of the area of concern as indicated by the patient in the left lower quadrant/body and demonstrate no discrete mass or hernia. Limited visualization due to bowel gas. US/US pelvic limited IMPRESSION: No discrete mass or hernia identified in the area of concern as indicated by the patient in the left lower quadrant/body. CT scan could be considered for further evaluation.
== END 2023-12-21 16:00 | disposition home or self-care (01) ==
LOC: HO.US 15:59
PROVIDERS: PCP Internal Medicine; Visit Provider Surgery
DX: R10.32 Left lower quadrant pain (principal); Z98.890 Other specified postprocedural states; Z87.19 Personal history of other diseases of the digestive system
CPT/HCPCS: 76857

== ENCOUNTER 2023-12-22 13:46 | Outpatient (REF) | payer OTHER, SELFPAY ==
--- NOTE | ~2023-12-22 | CT_ITS ---
EXAMINATION: CT ABDOMEN AND PELVIS WITH CONTRAST CLINICAL INFORMATION: Left lower quadrant pain COMPARISON: Ultrasound pelvis 12/21/2023 TECHNIQUE: Multidetector volumetric images were obtained from the superior aspect of the liver through the pubic symphysis following administration 85 mL of Omnipaque 350 intravenous contrast. Sagittal and coronal reformatted images were obtained on the technologist's workstation. Oral contrast: No This CT examination was performed using dose optimization techniques as appropriate, variously including the following: *Automated exposure control *Adjustment of mA and/or kV according to patient size (this includes techniques or standardized protocols for targeted exams where dose is matched to indication/reason for exam; i.e. extremities or head) *Use of iterative reconstruction technique DLP: 525 mGy-cm FINDINGS: LUNG BASES: The visualized lung bases are unremarkable. LIVER, GALLBLADDER, AND BILIARY TREE: The liver is normal in size, shape, and attenuation. No focal hepatic lesion or biliary ductal dilatation is present. The gallbladder is unremarkable with no evidence of radiopaque gallstones, gallbladder wall thickening, or obvious pericholecystic inflammatory changes. PANCREAS: Unremarkable. SPLEEN: Unremarkable. ADRENAL GLANDS: Unremarkable. KIDNEYS AND URETERS: The kidneys are normal in size, shape, and attenuation. No hydronephrosis, hydroureter, or calculi seen. No perinephric stranding. BLADDER: Symmetric bladder wall thickening is present GASTROINTESTINAL TRACT: The small and large bowel are unremarkable. The appendix is unremarkable. ABDOMINAL WALL: There is a small periumbilical hernia seen containing only fat. LYMPH NODES: Normal. VASCULAR: Unremarkable. PELVIC VISCERA: There is mild BPH. Seminal vesicles appear normal. OSSEOUS STRUCTURES: Unremarkable. CT/CT abdomen pelvis w IV con IMPRESSION: 1. A cause for the patient's left lower quadrant pain has not been found. 2. Incidental note made of mild BPH with symmetric bladder wall thickening and a small periumbilical hernia containing only fat. Fleischner guidelines were followed.
[2023-12-22] MEDS: iohexoL 350 MG/ML 100 ML INFUS..BTL IV (14:17)
== END 2023-12-22 13:47 | disposition home or self-care (01) ==
LOC: HO.CT 13:46
PROVIDERS: PCP Internal Medicine; Visit Provider Surgery
DX: R10.32 Left lower quadrant pain (principal); Z98.890 Other specified postprocedural states; Z87.19 Personal history of other diseases of the digestive system
CPT/HCPCS: 74177; Q9967

== ENCOUNTER 2024-01-05 08:55 | Outpatient (AMB) | payer OTHER, SELFPAY ==
--- NOTE | 2024-01-05 08:58 | MHC.OFFVIS ---
Vital Signs 01/05/24 09:03 Height 6 ft 2 in Weight 249 lb BMI 32.0 BP 138/80 Blood Pressure Location Rt brachial Position Sitting Pulse 61 Intake Visit Reasons: Left groin pain, CT results Intake Note: Patient here to discuss CT results. ABD/ pelvis CT 12-22-23. Patient c/o: Lt upper groin discomfort. Reports pain is not that bad. Feels like there is a bump underneath skin. 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 He has almost complete resolution of his left groin symptoms. In the meantime, he is active at work, tolerating a diet, having regular bowel habits. CT scan demonstrates no evidence of any recurrent left groin hernia. Patient has incidental finding of an umbilical hernia. No other intra-abdominal pathology demonstrated [facility] Medical History Venous insufficiency Flank pain Chest pain Annual physical exam Knee pain, right Left flank pain Mid-back pain, acute Gout Hyperlipidemia HTN (hypertension) Surgical History H/O left inguinal hernia repair Family History Father No problems noted. Mother No problems noted. Social History Housing: House Alcohol intake: current Alcohol intake frequency: holidays/special occasions only Alcohol type: beer Patient Tobacco Use Status: Never used Tobacco e-Cigarette/Vaping Use: Never Used Second Hand Smoke Exposure: No service: No Current occupational status: employed Current occupational exposures/hazards: No Cognitive needs: No Hearing needs: No Vision needs: No Physical Exam Vital Signs: Last Vital Signs Pulse 61 01/05/24 09:03 BP 138/80 01/05/24 09:03 BMI result Body Mass Index 32.0 GI Other: Patient was examined supine as well as standing. Left groin negative. Right groin negative. Small reducible umbilical hernia proximally 1 cm in size. Abdomen otherwise benign Assessment & Plan Assessment & Plan (1) Left groin pain: Code(s): R10.32 - Left lower quadrant pain Category: Surgical Plan At present time, no acute left groin issues demonstrated and the patient was clinically feeling better. Incidental finding of umbilical hernia will be treated conservatively as this is not symptomatic at this time. Should become so, patient will contact me. All questions answered. Patient will otherwise follow-up p.r.n.. Coding Level of Care Code Est Pt Level 3 (00788) Diagnoses Left groin pain R10.32
[2024-01-05 09:03] VITALS: BP 138/80; PULSE 61; BMI 32.0
== END 2024-01-05 09:13 | disposition home or self-care (01) ==
PROVIDERS: PCP Internal Medicine; Visit Provider Surgery
DX: R10.32 Left lower quadrant pain (principal)
CPT/HCPCS: 99213

== ENCOUNTER → 2024-01-05 08:55 | Outpatient (BNVA) | payer OTHER, SELFPAY | PROVIDERS: PCP Internal Medicine; Visit Provider Surgery ==

== ENCOUNTER 2024-04-22 09:21 | Outpatient (AMB) | payer OTHER, SELFPAY ==
--- NOTE | 2024-04-22 09:27 | MHC.OFFVIS ---
Vital Signs 04/22/24 09:28 Height 6 ft 2 in Weight 241 lb 10.026 oz BMI 31.0 BP 135/81 Blood Pressure Location Lt brachial Position Sitting Pulse 63 Intake Visit Reasons: Colonoscopy screening Intake Note: New patient in office today for colonoscopy screening. CC: Patient denies having any GI symptoms. 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 He is referred by Laila Hoang of [facility] primary care. PMX Hypertension High cholesterol Gout Venous insufficiency Left inguinal hernia Varicose veins * SURGICAL HISTORY Left inguinal hernia repair * ALLERGIES Pravastatin * Animoto LABS: Laboratory Tests 12/10/23 09:02 WBC 4.4 L Hgb 13.4 L Hct 40.2 L MCV 91.0 MCH 30.3 Plt Count 230 Estimated GFR > 60 Total Bilirubin 0.5 AST 31 ALT 40 Alkaline Phosphatase 51 TSH 2.01 TODAY'S VISIT This is his first colonoscopy. He denies any bowel or upper GI problems.. He denies any cardiac or respiratory problems. There are no prior problems with anesthesia or sedation. No ID problems. There is no known FHX of crc or polyps. FOR[facility]LY [facility], [facility] Medical History Venous insufficiency Flank pain Chest pain Annual physical exam Knee pain, right Left flank pain Mid-back pain, acute Gout Hyperlipidemia HTN (hypertension) Surgical History H/O left inguinal hernia repair Family History Father No problems noted. Mother No problems noted. Social History Housing: House Alcohol intake: current Alcohol intake frequency: holidays/special occasions only Alcohol type: beer Patient Tobacco Use Status: Never used Tobacco e-Cigarette/Vaping Use: Never Used Second Hand Smoke Exposure: No service: No Current occupational status: employed Current occupational exposures/hazards: No Cognitive needs: No Hearing needs: No Vision needs: No Review of Systems Const Denies fatigue, Denies fever(s), Denies night sweats, Denies poor appetite and Denies weight loss ENT Reports Normal hearing present, Denies dental pain, Denies dysphagia, Denies hearing loss, Denies mouth pain, Denies odynophagia, Denies throat swelling, Denies tongue swelling and Reports other (Dentition adequate) Card Reports no additional complaints Resp Reports no additional complaints GI Details: Denies abdominal pain, Denies melena, Denies bloating, Denies hematochezia, Denies constipation, Denies GI cramping, Denies dysphagia, Denies excessive flatus, Denies early satiety, Denies heartburn, Denies diarrhea, Denies nausea, Denies odynophagia, Denies vomiting and Denies hematemesis Skin/Breast Denies pruritus, Denies lesions, Denies rash and Denies jaundice Neuro Reports Normal hearing present and Denies Abnormal speech present Endo Denies fatigue Aller/Immun Denies throat swelling and Denies tongue swelling Physical Exam Vital Signs: Last Vital Signs Pulse 63 04/22/24 09:28 BP 135/81 04/22/24 09:28 BMI result Body Mass Index 31.0 Const General: cooperative, no acute distress, well developed and well groomed Nutritional Appearance: well nourished and overweight Orientation/consciousness: oriented to person, oriented to place and oriented to time Limitations: No language barrier HEENT Head: Yes normocephalic and Yes atraumatic Eyes General: appearance normal, both eyes and all related structures Pupils: Equal, round and reactive pupils present Neck Neck: Yes normal visual inspection and Yes no lymphadenopathy Thyroid: Thyroid normal Resp Effort & Inspection: normal respiratory effort and able to speak in complete sentences Auscultation: clear to auscultation bilaterally Cardio Rate: regular rate Rhythm: regular rhythm Heart sounds: Normal, physiologic split S2 sound present Peripheral pulses: radial pulses present and posterior tibial pulses present GI Inspection: No distended, No Abdominal panniculus present and Yes obesity Palpation (GI): Soft to palpation, nontender, no guarding, not rigid and No hepatosplenomegaly present Percussion: Yes normal to percussion Auscultation: normal bowel sounds Rectal Exam - Male: Yes deferred Skin General skin exam: no rashes or lesions noted, turgor normal, skin not dry, no jaundice, No spider nevi and no striae Rashes: no rashes Nails: normal Neuro General: oriented to person, oriented to place and oriented to time Cranial nerves: Yes Equal, round and reactive pupils present and Yes Normal hearing present Speech: No Abnormal speech present Extrem General: Yes normal to inspection, No clubbing, No cyanosis and No edema Psych Appearance: grossly normal and well kempt Mental Status: mental status grossly normal Speech and movement: Normal speech and movement present Affect: normal affect Attitude: cooperative Thought process: Normal thought process present and not confabulating Thought content: Normal thought content present Insight: Fair insight present (Psych) Judgement: Fair judgement present (Psych) Assessment & Plan Assessment & Plan (1) Pre-op examination: Code(s): Z01.818 - Encounter for other preprocedural examination Category: Medical Plan This is his first colonoscopy. He denies any bowel or upper GI problems.. He denies any cardiac or respiratory problems. There are no prior problems with anesthesia or sedation. No ID problems. There is no known FHX of crc or polyps. Orders: Orders Colonoscopy - GI Use Only Today Z01.818 - Encounter for other preprocedural examination Medications: New peg 3350-electrolytes 236-22.74-6.74 -5.86 gram (Golytely) until fecal effluent is clear; do not exceed a total volume of 2,000 mL 240 mL PO Q10M 4,000 mL 0RF 1 day Z12.11 - Encounter for screening for malignant neoplasm of colon bisacodyl (Dulcolax (bisacodyl)) 10 mg (2 x 5 mg) PO BEDTIME 4 tabs 0RF 2 days Coding Level of Care Code New Pt Level 3 (88589) Diagnoses Pre-op examination Z01.818
[2024-04-22 09:28] VITALS: BP 135/81; PULSE 63; BMI 31.0
== END 2024-04-22 10:00 | disposition home or self-care (01) ==
PROVIDERS: PCP Internal Medicine; Referring Provider Internal Medicine; Visit Provider Nurse Practitioner
DX: Z01.818 Encounter for other preprocedural examination (principal); Z12.11 Encounter for screening for malignant neoplasm of colon
CPT/HCPCS: 99203

== ENCOUNTER → 2024-04-22 09:21 | Outpatient (BNVA) | payer OTHER, SELFPAY | PROVIDERS: PCP Internal Medicine; Visit Provider Nurse Practitioner ==

== ENCOUNTER 2024-07-01 06:09 | Outpatient (REF) | payer OTHER, SELFPAY ==
[2024-07-01 10:53] LABS: Erythrocyte Sedimentation Rate 16 MM/HR (0-15)
[2024-07-01 11:20] LABS: Uric Acid 6.4 mg/dL (3.4-7.0)
== END 2024-07-01 06:10 | disposition home or self-care (01) ==
LOC: HO.HMGCLDS 06:09
PROVIDERS: PCP Internal Medicine; Visit Provider Internal Medicine
DX: M10.9 Gout, unspecified (principal)
CPT/HCPCS: 36415; 84550; 85652

== ENCOUNTER 2024-07-05 10:29 | Outpatient (AMB) | payer OTHER, SELFPAY ==
--- NOTE | 2024-07-05 10:32 | A.OFFPC_ITS ---
Vital Signs 07/05/24 10:33 Height 6 ft 2 in Weight 248 lb BMI 31.8 BP 132/80 Blood Pressure Location Lt brachial Position Sitting Pulse 74 Pulse Source Pulse Oximeter Pulse Oximetry (%) 99 Oxygen Delivery Method Room Air Intake Visit Reasons: R wrist pain Intake Note: Pt is here today for a sick visit. Pt c/o R wrist hand pain and swelling. Allergies pravastatin Adverse Reaction (Intermediate, Verified 07/05/24 10:35) Muscle cramps, abd pain Medication List - Last Reconciled 07/05/24 by Laila Hoang MD amlodipine-olmesartan 5-20 mg 1 tab PO BID bisacodyl (Dulcolax (bisacodyl)) 10 mg (2 x 5 mg) PO BEDTIME 2 days indomethacin 50 mg PO BID peg 3350-electrolytes 236-22.74-6.74 -5.86 gram (Golytely) 240 mL PO Q10M 1 day Tobacco use date assessed: 07/05/24 Dental Screening Dental Screen Date: 11/03/23 HPI R wrist pain HPI Details Patient complains of acute onset right wrist pain and swelling for 3 days. Patient has similar episode last year was treated with short course of prednisone. Patient has been eating more fish lately. He denies wrist injury. Hypertension is controlled on current medications [facility] Medical History (Updated 07/05/24 @ 15:42 by Laila Hoang MD) Venous insufficiency Flank pain Chest pain Annual physical exam Knee pain, right Left flank pain Mid-back pain, acute Gout Hyperlipidemia HTN (hypertension) Surgical History H/O left inguinal hernia repair Family History Father No problems noted. Mother No problems noted. Social History Housing: House Alcohol intake: current Alcohol intake frequency: holidays/special occasions only Alcohol type: beer Patient Tobacco Use Status: Never used Tobacco e-Cigarette/Vaping Use: Never Used Second Hand Smoke Exposure: No service: No Current occupational status: employed Current occupational exposures/hazards: No Cognitive needs: No Hearing needs: No Vision needs: No Questionnaire PHQ-9 Over the last 2 weeks, how often have you been bothered by any of the following problems? 3. Trouble falling or staying asleep, or sleeping too much: not at all 4. Feeling tired or having little energy: several days 5. Poor appetite or overeating: not at all 6. Feeling bad about yourself - or that you are a failure or have let yourself or your family down: not at all 7. Trouble concentrating on things, such as reading the newspaper or watching television: not at all 8. Moving or speaking so slowly that other people could have noticed. Or the opposite - being so fidgety or restless that you have been moving around a lot more than usual: not at all 9. Thoughts that you would be better off or of hurting yourself in some way: not at all Source: Developed by Drs. Ryan Greco, Avis Rader, Logan Manrique and colleagues, with an educational aleksey from [employer]. Thrive Questionnaire Date Thrive assessed: 11/03/23 I am a: Patient What is your living situation today?: I have a steady place to live Within the past 12 months, did the food you bought not last and you didn't have the money to get more?: Never true Within the past 12 months, did you worry whether your food would run out before you got money to buy more?: Never true Do you have trouble paying for medicines?: No Do you have trouble getting transportation to medical appointments?: No Do you have trouble paying your heating and electricity bill?: No Do you have trouble taking care of your child, family member or friend?: No Do you have trouble with day-to-day activities such as bathing, preparing meals, shopping, managing finances, etc.?: No Are you currently unemployed and looking for a job?: No Are you interested in more education?: No Please select the resources that you would like help with: None Currently or been in a relationship where the following occur: I choose not to answer THRIVE Score: 0 AUDIT C Alcohol Use Questionnaire (AUDIT-C) 1. How often do you have a drink containing alcohol?: Monthly or less 2. How many drinks containing alcohol do you have on a typical day when you are drinking?: 1 or 2 3. How often do you have six or more drinks on one occasion?: Monthly Total Score: 3 RADU-7 AMB Questionnaire RADU-7 Date RADU - 7 assessed: 11/03/23 Feeling nervous, anxious, or on edge: 0 = Not at all Not being able to stop or control worryin = Not at all Worrying too much about different things: 0 = Not at all Trouble relaxin = Not at all Being so restless that it is hard to sit still: 0 = Not at all Becoming easily annoyed or irritable: 0 = Not at all Feeling afraid as if something awful might happen: 0 = Not at all Total RADU-7 score (0-4 normal; 5-9 mild; 10-14 moderate; 15-21 severe): 0 Source: Developed by Drs. Ryan Greco, Avis Rader, Logan Manrique and colleagues, with an educational aleksey from [employer]. Review of Systems Const All systems reviewed & are unremarkable except as noted in HPI and below ENT Reports no additional complaints Card Reports no additional complaints Resp Reports no additional complaints GI Reports no additional complaints Physical exam (Primary Care) Vital Signs: Last Vital Signs Pulse 74 07/05/24 10:33 BP 132/80 07/05/24 10:33 Pulse Ox 99 07/05/24 10:33 Oxygen Delivery Method Room Air 07/05/24 10:33 BMI result Body Mass Index 31.8 Tobacco/Smoking Status: Tobacco use Status Tobacco use date assessed 07/05/24 07/05/24 10:36 Patient Tobacco Use Status Never used Tobacco 07/05/24 10:36 e-Cigarette/Vaping Use Never Used 07/05/24 10:36 Thrive Assessment: Date of Thrive Assessment Date Thrive assessed 11/03/23 07/05/24 10:36 Currently or been in a relationship where the following occur: I choose not to a nswer Const General: no acute distress HENMT Face and sinus: Yes normal facial exam Resp Effort & Inspection: normal respiratory effort Auscultation: clear to auscultation bilaterally Cardio Rhythm: regular rhythm Heart sounds: S1 normal heart sound present and S2 normal heart sound present Extrem Other: This is a right wrist soft tissue swelling slight warmth decreased range of motion and tenderness Coding Level of Care Code Est Pt Level 3 (55539) Diagnoses Arthritis of wrist, right M19.031 HTN (hypertension) I10 Assessment & Plan Assessment & Plan (1) Arthritis of wrist, right: Code(s): M19.031 - Primary osteoarthritis, right wrist Category: Medical Plan: For acute recurrent right wrist arthritis prednisone taper as prescribed. (2) HTN (hypertension): Code(s): I10 - Essential (primary) hypertension Category: Medical Plan: Continue current medications Medications: New prednisone 4 tabl qd x 3days, then 3 tabl x 3 days, then 2 tabl x 3 days, then 1 tabl x3 days 30 tabs 0RF Discontinued indomethacin administer with food or milk Discontinued Reason: Doctor's Order 50 mg PO BID 20 caps 1RF
[2024-07-05 10:33] VITALS: BP 132/80; PULSE 74; O2SAT 99; BMI 31.8
== END 2024-07-05 13:52 | disposition home or self-care (01) ==
PROVIDERS: PCP Internal Medicine; Visit Provider Internal Medicine
DX: M19.031 Primary osteoarthritis, right wrist (principal); I10 Essential (primary) hypertension

== ENCOUNTER 2024-07-18 13:36 | Outpatient (REF) | payer OTHER, SELFPAY ==
--- NOTE | ~2024-07-18 | XR_ITS ---
EXAMINATION: XR WRIST RIGHT CLINICAL INFORMATION: Pain in right wrist M25.531. COMPARISON: XR Right wrist 11/08/2018 TECHNIQUE: PA, lateral, and oblique views of the right wrist. FINDINGS: The bones and soft tissues are normal. No fracture. Alignment is anatomic with normal joint spaces. No erosions or abnormal soft tissue calcifications. XR/XR wrist RT min 3V IMPRESSION: Unremarkable right wrist. Electronically signed by: Klever Agrawal MD 08/12/2024 01:13 PM [facility]
== END 2024-07-18 13:37 | disposition home or self-care (01) ==
LOC: HO.HMGCX 13:36
PROVIDERS: PCP Internal Medicine; Visit Provider Internal Medicine
DX: M25.531 Pain in right wrist (principal)
CPT/HCPCS: 73110; 96127

== ENCOUNTER 2024-07-18 13:36 | Outpatient (AMB) | payer OTHER, SELFPAY ==
--- NOTE | 2024-07-18 13:39 | MHC.PC.OV ---
Vital Signs 07/18/24 13:40 Height 6 ft 2 in Weight 253 lb BMI 32.5 BP 130/80 Blood Pressure Location Rt brachial Position Sitting Pulse 66 Pulse Source Pulse Oximeter Pulse Oximetry (%) 97 Intake Visit Reasons: Wrist Pain Intake Note: pt is here for wrist pain Dry End Tester Required: No Allergies pravastatin Adverse Reaction (Intermediate, Verified 07/18/24 13:40) Muscle cramps, abd pain Medication List - Last Reconciled 07/18/24 by Laila Hoang MD amlodipine-olmesartan 5-20 mg 1 tab PO BID meloxicam 15 mg PO DAILY Tobacco use date assessed: 07/05/24 Dental Screening Dental Screen Date: 11/03/23 HPI Wrist Pain HPI Details Patient presents for the follow-up of right wrist pain. The pain and swelling improved after the course of prednisone patient complains of persistent discomfort when using his right thumb and some soft tissue swelling at the base of the right thumb. He denies erythema or warmth. 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 Mother No problems noted. Social History Housing: House Alcohol intake: current Alcohol intake frequency: holidays/special occasions only Alcohol type: beer Patient Tobacco Use Status: Never used Tobacco e-Cigarette/Vaping Use: Never Used Second Hand Smoke Exposure: No service: No Current occupational status: employed Current occupational exposures/hazards: No Cognitive needs: No Hearing needs: No Vision needs: No Questionnaire PHQ-9 Over the last 2 weeks, how often have you been bothered by any of the following problems? 1. Little interest or pleasure in doing things: not at all 2. Feeling down, depressed, or hopeless: not at all 3. Trouble falling or staying asleep, or sleeping too much: not at all 4. Feeling tired or having little energy: several days 5. Poor appetite or overeating: not at all 6. Feeling bad about yourself - or that you are a failure or have let yourself or your family down: not at all 7. Trouble concentrating on things, such as reading the newspaper or watching television: not at all 8. Moving or speaking so slowly that other people could have noticed. Or the opposite - being so fidgety or restless that you have been moving around a lot more than usual: not at all 9. Thoughts that you would be better off or of hurting yourself in some way: not at all Total score: 1 Depression Screening Interpretation: Negative Depression Screening Done: Yes 51994 - PHQ-9 Billing: Yes Source: Developed by Drs. Ryan Greco, Avis Rader, Logan Manrique and colleagues, with an educational aleksey from [employer]. Thrive Questionnaire Date Thrive assessed: 07/18/24 I am a: Patient What is your living situation today?: I have a steady place to live Within the past 12 months, did the food you bought not last and you didn't have the money to get more?: Never true Within the past 12 months, did you worry whether your food would run out before you got money to buy more?: Never true Do you have trouble paying for medicines?: No Do you have trouble getting transportation to medical appointments?: No Do you have trouble paying your heating and electricity bill?: No Do you have trouble taking care of your child, family member or friend?: No Do you have trouble with day-to-day activities such as bathing, preparing meals, shopping, managing finances, etc.?: No Are you currently unemployed and looking for a job?: No Are you interested in more education?: No Please select the resources that you would like help with: None Currently or been in a relationship where the following occur: I choose not to answer THRIVE Score: 0 AUDIT C Alcohol Use Questionnaire (AUDIT-C) 1. How often do you have a drink containing alcohol?: Monthly or less 2. How many drinks containing alcohol do you have on a typical day when you are drinking?: 1 or 2 3. How often do you have six or more drinks on one occasion?: Monthly Total Score: 3 Score Reviewed/Action Taken: Yes RADU-7 AMB Questionnaire RADU-7 Date RADU - 7 assessed: 07/18/24 Feeling nervous, anxious, or on edge: 0 = Not at all Not being able to stop or control worryin = Not at all Worrying too much about different things: 0 = Not at all Trouble relaxin = Not at all Being so restless that it is hard to sit still: 0 = Not at all Becoming easily annoyed or irritable: 0 = Not at all Feeling afraid as if something awful might happen: 0 = Not at all Total RADU-7 score (0-4 normal; 5-9 mild; 10-14 moderate; 15-21 severe): 0 Source: Developed by Drs. Ryan Greco, Avis Rader, Logan Manrique and colleagues, with an educational aleksey from [employer]. RADU-7 Assessment Billing RADU-7 Assessment Tool: RADU-7 Assessment 75446 Review of Systems Const All systems reviewed & are unremarkable except as noted in HPI and below ENT Reports no additional complaints Card Reports no additional complaints GI Reports no additional complaints Physical exam (Primary Care) Vital Signs: Last Vital Signs Pulse 66 07/18/24 13:40 BP 130/80 07/18/24 13:40 Pulse Ox 97 07/18/24 13:40 BMI result Body Mass Index 32.5 Tobacco/Smoking Status: Tobacco use Status Tobacco use date assessed 07/05/24 07/18/24 13:41 Patient Tobacco Use Status Never used Tobacco 07/18/24 13:41 e-Cigarette/Vaping Use Never Used 07/18/24 13:41 PHQ-9: PHQ-9 Score PHQ-9: Total score 1 07/18/24 13:41 Depression Screening Interpretation: Negative Thrive Assessment: Date of Thrive Assessment Date Thrive assessed 07/18/24 07/18/24 13:41 Currently or been in a relationship where the following occur: I choose not to answer Const General: no acute distress HENMT Ears: hearing grossly normal bilaterally Resp Effort & Inspection: normal respiratory effort Auscultation: clear to auscultation bilaterally Cardio Rhythm: regular rhythm Heart sounds: S1 normal heart sound present and S2 normal heart sound present Extrem Other: There is a tenderness at the base of the right thumb no soft tissue swelling erythema or warmth. Coding Level of Care Code Est Pt Level 3 (53319) Diagnoses Wrist pain, right M25.531 Additional Codes RADU-7 Assessment Billing - RADU-7 Assessment Tool: RADU-7 Assessment 83223 ([id number]) PHQ-9 - 41846 - PHQ-9 Billing: Yes ([id number]) Assessment & Plan Assessment & Plan (1) Wrist pain, right: Code(s): M25.531 - Pain in right wrist Category: Medical Plan: Obtain x-ray, patient was advised to were wrist splint to avoid overuse of the MCP JOINT, meloxicam prn Orders: Orders XR wrist RT 2V Today M25.531 - Pain in right wrist Medications: New meloxicam 15 mg PO DAILY 10 tabs 0RF
[2024-07-18 13:40] VITALS: BP 130/80; PULSE 66; O2SAT 97; BMI 32.5
== END 2024-07-18 14:07 | disposition home or self-care (01) ==
PROVIDERS: PCP Internal Medicine; Visit Provider Internal Medicine
DX: M25.531 Pain in right wrist (principal)

== ENCOUNTER → 2024-07-18 14:05 | Outpatient (BNV) | payer OTHER, SELFPAY | PROVIDERS: PCP Internal Medicine; Visit Provider Radiology Diagnostic Radiology | DX: M25.531 Pain in right wrist (principal) | CPT/HCPCS: 73110 ==

== ENCOUNTER 2024-08-24 06:16 | Outpatient (REF) | payer OTHER, SELFPAY ==
[2024-08-24 10:13] LABS: C Reactive Protein 0.53 mg/dL (< or = 0.50)
[2024-08-24 10:14] LABS: Rheumatoid Factor < 13.0 IU/mL (<15.0)
[2024-08-25 18:27] LABS: Lyme Abs Screen <0.90 index
[2024-08-28 09:33] LABS: Anti Nuclear Antibody Screen NEGATIVE (NEGATIVE)
== END 2024-08-24 06:17 | disposition home or self-care (01) ==
LOC: HO.HMGCLDS 06:16
PROVIDERS: PCP Internal Medicine; Visit Provider Internal Medicine
DX: M19.031 Primary osteoarthritis, right wrist (principal)
CPT/HCPCS: 36415; 86038; 86140; 86431; 86617; 86618

== ENCOUNTER 2024-08-30 11:44 | Day surgery (SDC) | payer OTHER, SELFPAY ==
--- NOTE | 2024-08-29 11:47 | HO.ANESPROP2 ---
HPI - Anesthesia Eval Consult details Narrative: 49yo M for Colonoscopy PMF Active Problems Active Problems: All Active Problems Wrist pain, right (Acute) Arthritis of wrist, right (Acute) Gout (Acute) Pre-op examination (Acute) Left groin pain (Acute) H/O left inguinal hernia repair (Acute) Inguinal hernia of left side without obstruction or gangrene (Acute) Pharyngitis (Acute) Back pain (Acute) Varicose veins of left lower extremity with inflammation (Acute) Varicose veins of right lower extremity with inflammation (Acute) Venous insufficiency (Acute) Flank pain (Acute) Chest pain (Acute) Annual physical exam (Acute) Knee pain, right (Acute) Left flank pain (Acute) Mid-back pain, acute (Acute) Hyperlipidemia (Acute) HTN (hypertension) (Acute) Past Medical History Medical History Venous insufficiency Flank pain Chest pain Annual physical exam Knee pain, right Left flank pain Mid-back pain, acute Gout Hyperlipidemia HTN (hypertension) Family History Family History Father No problems noted. Mother No problems noted. Surgical History Surgical History H/O left inguinal hernia repair Social History Social History Housing: House Alcohol intake: current Alcohol intake frequency: holidays/special occasions only Alcohol type: beer Patient Tobacco Use Status: Never used Tobacco e-Cigarette/Vaping Use: Never Used Second Hand Smoke Exposure: No service: No Current occupational status: employed Current occupational exposures/hazards: No Cognitive needs: No Hearing needs: No Vision needs: No Meds Allergies Allergy/AdvReac Type Severity Reaction Status Date / Time pravastatin AdvReac Intermediate Muscle Verified 07/18/24 13:40 cramps, abd pain Assessment and Plan Assessment Anesthesia Assessment: Chart Reviewed
--- NOTE | 2024-08-30 11:47 | MHC.SHP ---
Pre-Procedural Eval Section A - 24 Hr Update-Section A only Date of Service: 08/30/24 Section B - Complete if H&P > 30 days Chief Complaint: screening Details of Present Illness: Venous insufficiency Flank pain Chest pain Annual physical exam Knee pain, right Left flank pain Mid-back pain, acute Gout Hyperlipidemia HTN (hypertension) Surgical History H/O left inguinal hernia repair Present Medications: see Short Stay Collaborative assessment Allergies: Allergies Allergy/AdvReac Type Severity Reaction Status Date / Time pravastatin AdvReac Intermediate Muscle Verified 07/18/24 13:40 cramps, abd pain Review of Systems Review of Systems Comment: Ten point ROS negative Exam Exam Comment: Gen appear: No acute distress HEENT: no icterus Chest: No overt resp distress Abd: soft, nontender, nondistended Psych: Stable affect, answering questions appropriately Neuro: A/Ox3 noted to move all extremities spontaneously Ext: no peripheral edema Plan Diagnosis/Plan: Unchanged I have reviewed the history and physical and performed a pertinent physical examination on my patient. No changes have occurred unless specified. Time Spent With Patient Time: Total time managing care of this patient today ____ minutes.
[2024-08-30 12:03] VITALS: BMI 31.3
[2024-08-30] MEDS: Lactated Ringers 1,000 ML 100 ML IVCONT (12:08)
--- NOTE | 2024-08-30 12:13 | P.CONAN_ITS ---
[facility] Active Problems Active Problems: All Active Problems Wrist pain, right (Acute) Arthritis of wrist, right (Acute) Gout (Acute) Pre-op examination (Acute) Left groin pain (Acute) H/O left inguinal hernia repair (Acute) Inguinal hernia of left side without obstruction or gangrene (Acute) Pharyngitis (Acute) Back pain (Acute) Varicose veins of left lower extremity with inflammation (Acute) Varicose veins of right lower extremity with inflammation (Acute) Venous insufficiency (Acute) Flank pain (Acute) Chest pain (Acute) Annual physical exam (Acute) Knee pain, right (Acute) Left flank pain (Acute) Mid-back pain, acute (Acute) Hyperlipidemia (Acute) HTN (hypertension) (Acute) Past Medical History Medical History Venous insufficiency Flank pain Chest pain Annual physical exam Knee pain, right Left flank pain Mid-back pain, acute Gout Hyperlipidemia HTN (hypertension) Functional capacity: independent ambulation Family History Family History Father No problems noted. Mother No problems noted. Family history of problems with anesthesia: No Surgical History Surgical History H/O left inguinal hernia repair History of Problems with Anesthesia: No Social History Social History Housing: House Are you a primary healthcare applications analyst to a significant other at home: No Do you presently have visiting nurse or other home services: No Alcohol intake: current Alcohol intake frequency: holidays/special occasions only Alcohol type: beer Patient Tobacco Use Status: Never used Tobacco e-Cigarette/Vaping Use: Never Used Second Hand Smoke Exposure: No Have you been hit, kicked, punched, or otherwise hurt by someone within the past year? If so, by whom?: No Are you DNR?: No Advance Directives: No Advance Directives Information Provided: Yes Recently lost weight without trying: No Nutrition Risks: No Nutritional Risk service: No Current occupational status: employed Current occupational exposures/hazards: No Cognitive needs: No Hearing needs: No Vision needs: No Meds Allergies Allergy/AdvReac Type Severity Reaction Status Date / Time pravastatin AdvReac Intermediate Muscle Verified 08/30/24 12:04 cramps, abd pain Active Medications: Current Medications Lactated Ringer's (Lr) 1,000 mls @ 100 mls/hr IVCONT .Q10H MINDY Exam Height,Weight and Vital Signs: Height 6 ft 2 in Weight 110.677 kg Airway Mallampati Class: III TM Dist: >3cm Neck ROM: Full Heart: RRR Lungs: CTA Assessment and Plan Assessment Anesthesia Assessment: Anesthesia Plan Discussed and Chart Reviewed Final Anesthetic Review Family History of Problems with Anesthesia: No History of Problems with Anesthesia: No ASA Class: III Final Preanesthetic Review: Meds/Allgs Chart Reviewed, Consent Obtained/Reviewed and Anes Risks/Benef Reviewed Patient Risk: Low Procedure Risk: Low Anesthetic Plan Anesthetic Plan: MAC: Disposition: Standard PACU
[2024-08-30 12:17] VITALS: BP 142/67; PULSE 70; RESP 18; TEMP 36.7; O2SAT 99
--- NOTE | 2024-08-30 13:37 | P.OPN-COLO_ITS ---
Colonoscopy Operative Note Operative Note Date of Service: 08/30/24 Narrative: Procedure: Colonoscopy Indication: Screening Endoscopist: Natasha Young MD Anesthesia Provider: Gloria Martins MD Anesthesia type: MAC Instrument: Olympus [id number]-[id number] Consent: Indication, risks vs benefits, and alternatives were discussed with the patient who gave written informed consent to proceed. EKG, pulse, pulse oximetry and blood pressure were monitored throughout the procedure. Please see anesthesia flowsheet. Procedure: The patient was brought to the procedure room and placed in the left lateral decubitus position. IV medications were administered by the anesthesia provider in attendance. A digital rectal exam was performed which was abnormal for external hemorrhoids. A distal attachment cap was affixed to the tip of the colonoscope which was then inserted through the anus and advanced through the colon to the cecum at 75 cm,and terminal ileum. Appendiceal orifice and ileocecal valve were identified. Mucosa was carefully examined under high definition white light as the instrument was slowly withdrawn in a retrograde panoramic fashion. Retroflexion was performed in ascending colon and rectum. The procedure was not difficult. There were no immediate obvious complications. The quality of the prep was BBPS: 2+2+3 = adequate Withdrawal time 17 minutes. Limitations: No limitations. Findings: Mucosa: Normal to cecum and terminal ileum. Protruding lesions: * 1 sessile polyp of size 6 mm in ascending colon. Cold snare polypectomy was performed. The polyp was completely removed and retrieved. * 1 sessile polyp of size 5 mm in transverse colon. Cold snare polypectomy was performed. The polyp was completely removed and retrieved. * 1 sessile polyp of size 7 mm in sigmoid colon. Cold snare polypectomy was performed. The polyp was completely removed and retrieved. * Large internal hemorrhoids without stigmata of recent bleeding. Impression: 1. Normal colon and terminal ileum mucosa 2. Total of 3 polyps removed 3. External and internal hemorrhoids Recommendations: - Follow path results. - Repeat colonoscopy in 3 years if all polyps are adenomas, otherwise 7 years.
[2024-08-30 13:48] VITALS: BP 95/58; PULSE 72; RESP 16; TEMP 36.3
[2024-08-30 13:53] VITALS: BP 110/68; PULSE 62; RESP 16; TEMP 36.3; O2SAT 97
== END 2024-08-30 14:10 | disposition home or self-care (01) ==
PROVIDERS: PCP Internal Medicine; Visit Provider Internal Medicine
PROC: 0DJD8ZZ Inspection of Lower Intestinal Tract, Via Natural or Artificial Opening Endoscopic (ICD-10-PCS; CPT 45378; principal; 2024-08-30 13:30)
DX: Z12.11 Encounter for screening for malignant neoplasm of colon (principal); D12.2 Benign neoplasm of ascending colon; D12.3 Benign neoplasm of transverse colon; K63.5 Polyp of colon; K64.8 Other hemorrhoids; K64.4 Residual hemorrhoidal skin tags; I10 Essential (primary) hypertension; E78.00 Pure hypercholesterolemia, unspecified; I83.10 Varicose veins of unspecified lower extremity with inflammation; I87.2 Venous insufficiency (chronic) (peripheral); M10.9 Gout, unspecified; Z79.899 Other long term (current) drug therapy; Z88.8 Allergy status to other drugs, medicaments and biological substances; Z98.890 Other specified postprocedural states
CPT/HCPCS: 45385; 88305; J2003; J2704

== ENCOUNTER → 2024-08-30 11:44 | Outpatient (BNV) | payer OTHER, SELFPAY | PROVIDERS: PCP Internal Medicine; Visit Provider Internal Medicine | DX: Z12.11 Encounter for screening for malignant neoplasm of colon (principal); K63.5 Polyp of colon; K64.8 Other hemorrhoids | CPT/HCPCS: 45385 ==

== ENCOUNTER 2024-09-05 13:37 | Outpatient (AMB) | payer OTHER, SELFPAY ==
--- NOTE | 2024-09-05 13:47 | A.OFFVIS_ITS ---
Vital Signs 09/05/24 13:54 Height 6 ft 2 in Weight 250 lb BMI 32.1 Intake Visit Reasons: [employer]- Pain in RT Wrist radiating down to thumb Intake Note: Jerel is a 49 year old right hand dominant male who presents today as a new patient for an evaluation of pain in right wrist radiating down to thumb. Denies injury. States his pain presented in the beginning of June. He was seen by his PCP and wsa prescribed antibiotics for gout, states 2 rounds of antibiotics. He felt relief the first couple of days with antibiotic and his discofmort came back and was referred to orthopedics. He has numbness and tingling in his hand with sleeping. Pain with twisting and bending motion in his wrist. Finds little relief with ibuprofen,. Allergies pravastatin Adverse Reaction (Intermediate, Verified 09/05/24 13:57) Muscle cramps, abd pain HPI HPI [employer]- Pain in RT Wrist radiating down to thumb : Details: Patient is a 49-year-old male who presents for evaluation of right wrist pain, ongoing since approximately the beginning of June. The patient states that at that time, he was evaluated by his primary care provider, who prescribed him a course of steroids, which he did feel helped his pain, but states that as soon as finished his course of steroids his pain began to recur. The patient states that his pain has improved significantly since that time, and then he only experiences minimal discomfort in the right wrist at this time. Denies any numbness or tingling in the right upper extremity. No other acute complaints or concerns at this time. COUNTS INCLUDE 234 BEDS AT THE [facility] Medical History Venous insufficiency Flank pain Chest pain Annual physical exam Knee pain, right Left flank pain Mid-back pain, acute Gout Hyperlipidemia HTN (hypertension) Surgical History H/O left inguinal hernia repair Family History Father No problems noted. Mother No problems noted. 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 Neuro: Normal sensation of the tips of all digits of the right hand at this time Vascular: Cap refill brisk Pain: Very mild Tenderness to palpation about the radial aspect of the right wrist Mild Pain with range of motion of the right wrist ROM: Patient is able to flex and extend all digits of the right hand fully and without difficulty Patient is able to flex and extend the right wrist fully and without difficulty Skin: No lacerations or abrasions. General: No ecchymosis, erythema, or evidence of infection. Psych: Appears grossly normal Affect normal Attitude cooperative Results Reviewed Results Reviewed: X-rays obtained in the office today and independently reviewed by me, Emanuel Lucas PA-C, demonstrate moderate to severe arthritic changes of the trapezioscaphoid joint of the right wrist. No fracture or acute bony abnormality noted. Assessment & Plan Assessment & Plan (1) FCR (flexor carpi radialis) tenosynovitis: Code(s): M65.939 - Unspecified synovitis and tenosynovitis, unspecified forearm Category: Medical (2) Arthritis of cnmpagno-cycrngjco-zombijgkk joint: Code(s): M19.039 - Primary osteoarthritis, unspecified wrist Category: Medical Plan 1. FCR tendinitis of right wrist 2. 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 Patient is educated about these conditions Patient is educated about the typical recovery course Patient was offered a referral to occupational therapy for range of motion and strengthening of the right wrist in the setting of these conditions, but declines, stating that he feels he is improving well and does not require any therapy Patient was provided with a Velcro wrist splint to be worn when his wrist is bothering him Patient was amenable to this plan Patient will follow-up as needed with any acute concerns Coding Level of Care Code New Pt Level 3 (82346) Diagnoses FCR (flexor carpi radialis) tenosynovitis M65.939 Arthritis of eeuvgtns-vqmisqvnk-ilanbcmgt joint M19.039
[2024-09-05 13:54] VITALS: BMI 32.1
== END 2024-09-05 14:18 | disposition home or self-care (01) ==
PROVIDERS: PCP Internal Medicine
DX: M65.939 Unspecified synovitis and tenosynovitis, unspecified forearm (principal); M19.039 Primary osteoarthritis, unspecified wrist
CPT/HCPCS: 99203

== ENCOUNTER 2025-05-01 12:19 | Outpatient (AMB) | payer OTHER, SELFPAY ==
[2025-05-01 12:21] VITALS: BP 130/70; PULSE 63; O2SAT 98; BMI 30.3
--- NOTE | 2025-05-01 12:21 | MHC.PC.OV ---
Vital Signs 05/01/25 12:21 Height 6 ft 2 in Weight 236 lb 2 oz BMI 30.3 BP 130/70 Blood Pressure Location Lt brachial Position Sitting Pulse 63 Pulse Source Pulse Oximeter Pulse Oximetry (%) 98 Intake Visit Reasons: PE Allergies pravastatin Adverse Reaction (Intermediate, Verified 05/01/25 12:22) Muscle cramps, abd pain Medication List - Last Reconciled 05/01/25 by Laila Hoang MD amlodipine-olmesartan 5-20 mg 1 tab PO BID Tobacco use date assessed: 05/01/25 Dental Screening Dental Screen Date: 05/01/25 Did you have a dental visit in the last 12 months?: Yes Did you have a dental problem in the last 6 months where you did not have access to dental care?: No Was dental information given to patient?: Patient has dentist HPI PE HPI Details Patient presents for PE. [facility] Medical History (Updated 05/01/25 @ 12:40 by Laila Hoang MD) Serrated polyp of colon Venous insufficiency Flank pain Chest pain Annual physical exam Knee pain, right Left flank pain Mid-back pain, acute Gout Hyperlipidemia HTN (hypertension) Surgical History (Updated 05/01/25 @ 12:40 by Laila Hoang MD) Hx of colonoscopy H/O left inguinal hernia repair Family History Father No problems noted. Mother No problems noted. 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 1. Little interest or pleasure in doing things: not at all 2. Feeling down, depressed, or hopeless: not at all 3. Trouble falling or staying asleep, or sleeping too much: not at all 4. Feeling tired or having little energy: not at all 5. Poor appetite or overeating: not at all 6. Feeling bad about yourself - or that you are a failure or have let yourself or your family down: not at all 7. Trouble concentrating on things, such as reading the newspaper or watching television: not at all 8. Moving or speaking so slowly that other people could have noticed. Or the opposite - being so fidgety or restless that you have been moving around a lot more than usual: not at all 9. Thoughts that you would be better off or of hurting yourself in some way: not at all Total score: 0 Depression Screening Interpretation: Negative Depression Screening Done: Yes 10147 - PHQ-9 Billing: Yes Source: Developed by Drs. Ryan Greco, Avis Rader, Logan Manrique and colleagues, with an educational aleksey from [email or web address]. Thrive Questionnaire Date Thrive assessed: 05/01/25 I am a: Patient What is your living situation today?: I have a steady place to live Within the past 12 months, did the food you bought not last and you didn't have the money to get more?: I choose not to answer this question Within the past 12 months, did you worry whether your food would run out before you got money to buy more?: I choose not to answer this question Do you have trouble paying for medicines?: No Do you have trouble getting transportation to medical appointments?: No Do you have trouble paying your heating and electricity bill?: No Do you have trouble taking care of your child, family member or friend?: No Do you have trouble with day-to-day activities such as bathing, preparing meals, shopping, managing finances, etc.?: No Are you currently unemployed and looking for a job?: No Are you interested in more education?: No Please select the resources that you would like help with: None Currently or been in a relationship where the following occur: I choose not to answer THRIVE Score: 0 AUDIT C Alcohol Use Questionnaire (AUDIT-C) 1. How often do you have a drink containing alcohol?: Monthly or less 2. How many drinks containing alcohol do you have on a typical day when you are drinking?: 1 or 2 3. How often do you have six or more drinks on one occasion?: Less than monthly Total Score: 2 Score Reviewed/Action Taken: Yes RADU-7 AMB Questionnaire RADU-7 Date RADU - 7 assessed: 05/01/25 Feeling nervous, anxious, or on edge: 0 = Not at all Not being able to stop or control worryin = Not at all Worrying too much about different things: 0 = Not at all Trouble relaxin = Not at all Being so restless that it is hard to sit still: 0 = Not at all Becoming easily annoyed or irritable: 0 = Not at all Feeling afraid as if something awful might happen: 0 = Not at all Total RADU-7 score (0-4 normal; 5-9 mild; 10-14 moderate; 15-21 severe): 0 Source: Developed by Drs. Ryan Greco, Avis Rader, Logan Manrique and colleagues, with an educational aleksey from [email or web address]. RADU-7 Assessment Billing RADU-7 Assessment Tool: RADU-7 Assessment 63210 Review of Systems Const All systems reviewed & are unremarkable except as noted in HPI and below Eyes Reports no additional complaints ENT Reports no additional complaints Card Reports no additional complaints Resp Reports no additional complaints GI Reports no additional complaints Reports no additional complaints Physical exam (Primary Care) Vital Signs: Last Vital Signs Pulse 63 05/01/25 12:21 BP 130/70 05/01/25 12:21 Pulse Ox 98 05/01/25 12:21 BMI result Body Mass Index 30.3 Tobacco/Smoking Status: Tobacco use Status Tobacco use date assessed 05/01/25 05/01/25 12:23 Patient Tobacco Use Status Never used Tobacco 05/01/25 12:23 e-Cigarette/Vaping Use Never Used 05/01/25 12:23 PHQ-9: PHQ-9 Score PHQ-9: Total score 0 05/01/25 12:23 Depression Screening Interpretation: Negative Thrive Assessment: Date of Thrive Assessment Date Thrive assessed 05/01/25 05/01/25 12:23 Currently or been in a relationship where the following occur: I choose not to answer Const General: no acute distress HENMT Head: Yes normal to inspection General nose exam: Normal nasal mucous membranes and turbinates present Face and sinus: Yes normal facial exam Throat: Yes posterior oropharynx normal Eyes General: appearance normal, both eyes and all related structures Neck Neck: Yes no lymphadenopathy and Yes supple Resp Effort & Inspection: normal respiratory effort Auscultation: clear to auscultation bilaterally Cardio Rhythm: regular rhythm Heart sounds: S1 normal heart sound present and S2 normal heart sound present GI Inspection: Yes normal to inspection Palpation (GI): Soft to palpation Percussion: Yes normal to percussion Auscultation: normal bowel sounds Coding Level of Care Code Est Pt Prev Care 40-64y(95691) Diagnoses HTN (hypertension) I10 Annual physical exam Z00.00 Additional Codes RADU-7 Assessment Billing - RADU-7 Assessment Tool: RAUD-7 Assessment 15419 ([id number]) PHQ-9 - 49917 - PHQ-9 Billing: Yes ([id number]) Assessment & Plan Assessment & Plan (1) HTN (hypertension): Code(s): I10 - Essential (primary) hypertension Category: Medical Plan: Continue current medications (2) Annual physical exam: Code(s): Z00.00 - Encounter for general adult medical examination without abnormal findings Category: Medical Plan: Well-balanced diet regular physical activity discussed with the patient. He had colonoscopy in August and needs a repeat one in 5 years. Patient will have a fasting blood work today Orders: Orders Complete Blood Count Auto Diff Today I10 - Essential (primary) hypertension, Z00.00 - Encounter for general adult medical examination without abnormal findings PSA,Total (Free>4and<10) Today I10 - Essential (primary) hypertension, Z00.00 - Encounter for general adult medical examination without abnormal findings Comprehensive [place]. Panel Fast Today I10 - Essential (primary) hypertension, Z00.00 - Encounter for general adult medical examination without abnormal findings Lipid Panel Today I10 - Essential (primary) hypertension, Z00.00 - Encounter for general adult medical examination without abnormal findings UA w Microscopic Today I10 - Essential (primary) hypertension, Z00.00 - Encounter for general adult medical examination without abnormal findings
--- OUTSIDE RECORDS SUMMARY | 2025-05-01 17:00 | XMS_ITS | Clinical Summary ---
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 Name Role Phone Unavailable Primary Care Provider Unavailabl e Social History Tobacco Use Types Packs/Day Years Used Date Smoking Tobacco: Never Assessed Sex and Gender Information Value Date Recorded Sex Assigned at Not on file Legal Sex Male 8:54 PM EST Gender Identity Not on file Sexual Orientation Not on file Plan of Treatment Health Maintenance Due Date Last Done Comments DTaP,Tdap,and Td Vaccines (1 - Tdap) 1992 Hepatitis B Vaccines (1 of 3 - 19+ 3-dose series) 1992 Pneumococcal Vaccine: 50+ Ye ars (1 of 1 - PCV) 2023 Zoster Vaccines (1 of 2) 2023 Depression Screening 08/17/2024 COVID-19 Vaccine (1 - 2023-2 5 season) 2025 Influenza Vaccine (#1) 2025 HIB Vaccines Aged Out No longer eligi ble based on patient's age to complete this topic HPV Vaccines Aged Out No longer eligi ble based on patient's age to complete this topic Hepatitis A Vaccines Aged Out No long er eligible based on patient's age to complete this topic IPV Vaccines Aged Out No longer eligi ble based on patient's age to complete this topic MMR Vaccines Aged Out No longer eligi ble based on patient's age to complete this topic Meningococcal ACWY Vaccine Aged Out N o longer eligible based on patient's age to complete this topic Meningococcal B Vaccine Aged Out No l onger eligible based on patient's age to complete this topic RSV Immunization Patients Un luzma 20 months Aged Out No longer eligible b ased on patient's age to complete this topic Varicella Vaccines Aged Out No longer eligible based on patient's age to complete this topic
== END 2025-05-01 12:48 | disposition home or self-care (01) ==
LOC: HO.HMCC 12:20
PROVIDERS: PCP Internal Medicine; Visit Provider Internal Medicine
DX: I10 Essential (primary) hypertension (principal); Z00.00 Encounter for general adult medical examination without abnormal findings

== ENCOUNTER 2025-05-01 12:19 | Outpatient (REF) | payer OTHER, SELFPAY ==
[2025-05-01 16:18] LABS: Appearance Urine Clear; Glucose Urine UA Negative (Negative); PH 5.5 (5.0-9.0); Specific Gravity - Urine 1.020 (1.005-1.025)
[2025-05-01 16:21] LABS: MANUAL DIFF FLAG NO
[2025-05-01 16:26] LABS: Hematocrit 38.2 % (42.0-52.0); Hemoglobin 13.2 g/dl (14.0-18.0); Imm Gran Abs Auto 0.01 X10*3/uL (0.00-0.03); Imm Gran Pct Auto 0.2 % (0.0-0.4); Lymphocytes Absolute Auto 2.7 X10*3/uL (1.2-4.9); Mean Corpuscular HGB Conc 34.6 g/dl (31.0-36.0); Mean Corpuscular Hemoglobin 31.1 pg (27.0-33.0); Mean Corpuscular Volume 90.1 fL (80.0-98.0); NRBC Abs Auto 0.000 X10*3/uL (0.0-0.012); NRBC Pct Auto 0.0 /100WBC (0.0-0.2); Platelet Count 223 X10*3/uL (160-400); Red Blood Count 4.24 X10*6/uL (4.60-5.80); White Blood Count 6.4 X10*3/uL (4.8-10.8)
[2025-05-01 16:44] LABS: Alanine Aminotransferase 25 U/L (0-40); Albumin Level 4.7 g/dL (3.5-5.0); Alkaline Phosphatase 50 U/L (39-117); Anion Gap 12 (12-20); Aspartate Amino Transferase 27 U/L (5-37); Blood Urea Nitrogen 15 mg/dL (9-16); Calcium 9.2 mg/dL (8.4-10.2); Carbon Dioxide 26 mmol/L (22-29); Chloride 106 mmol/L (96-108); Cholesterol 219 mg/dL (<200); Estimated Glomerular Filt Rate > 60; HDL Cholesterol 47 mg/dL (>40); Potassium 3.8 mmol/L (3.3-5.1); Sodium 140 mmol/L (135-145); Total Protein 7.4 g/dL (6.5-8.0); Triglycerides 56 mg/dL (<150)
[2025-05-01 16:57] LABS: PSA,Total (Free>4and<10) 1.18 ng/mL (0.00-4.00)
== END 2025-05-01 12:20 | disposition home or self-care (01) ==
LOC: HO.HMGCLDS 12:19
PROVIDERS: PCP Internal Medicine; Visit Provider Internal Medicine
DX: Z00.00 Encounter for general adult medical examination without abnormal findings (principal); I10 Essential (primary) hypertension; Z12.5 Encounter for screening for malignant neoplasm of prostate
CPT/HCPCS: 36415; 80053; 80061; 81001; 84153; 85025; 96127

== ENCOUNTER 2025-05-23 15:27 | Outpatient (AMB) | payer OTHER, SELFPAY ==
--- NOTE | 2025-05-23 15:30 | MHC.OFFVIS ---
Vital Signs 05/23/25 15:32 Height 6 ft 2 in Weight 231 lb 7.766 oz BMI 29.7 BP 136/77 Blood Pressure Location Lt brachial Position Sitting Pulse 67 Intake Visit Reasons: rectal bleeding Intake Note: Pt c/o; dark blood on toilet paper after bm , Denies other GI symptoms. 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 He denies any bowel or upper GI problems.. He denies any cardiac or respiratory problems. There are no prior problems with anesthesia or sedation. No ID problems. There is no known FHX of crc or polyps. Orders: Orders Colonoscopy - GI Use Only Today Z01.818 - Encounter for other preprocedural examination Medications: New peg 3350-electrolytes 236-22.74-6.74 -5.86 gram (Golytely) until fecal effluent is clear; do not exceed a total volume of 2,000 mL 240 mL PO Q10M 4,000 mL 0RF 1 day Z12.11 - Encounter for screening for malignant neoplasm of colon bisacodyl (Dulcolax (bisacodyl)) 10 mg (2 x 5 mg) PO BEDTIME 4 tabs 0RF 2 days COLONOSCOPY 08/30/2024 Findings: Mucosa: Normal to cecum and terminal ileum. Protruding lesions: 1 sessile polyp of size 6 mm in ascending colon. Cold snare polypectomy was performed. The polyp was completely removed and retrieved. 1 sessile polyp of size 5 mm in transverse colon. Cold snare polypectomy was performed. The polyp was completely removed and retrieved. 1 sessile polyp of size 7 mm in sigmoid colon. Cold snare polypectomy was performed. The polyp was completely removed and retrieved. Large internal hemorrhoids without stigmata of recent bleeding. Impression: 1. Normal colon and terminal ileum mucosa 2. Total of 3 polyps removed 3. External and internal hemorrhoids Recommendations: - Follow path results. - Repeat colonoscopy in 3 years if all polyps are adenomas, otherwise 7 years. BIOPSY Received: 08/30/24 Diagnosis A. Colon, ascending, polypectomy: Fragments of sessile serrated lesion/polyp; negative for cytologic dysplasia. B. Colon, transverse, polypectomy: Sessile serrated lesion/polyp; negative for cytologic dysplasia. C. Colon, sigmoid, polypectomy: Hyperplastic mucosal polyp. TODAY'S VISIT As only 2 of the polyps were TA is the procedure needs to be repeated in 5 years. It also showed large internal hemorrhoids. [facility] Medical History (Updated 05/23/25 @ 15:55 by COLIN Madden) Pharyngitis Wrist pain, right Back pain Annual physical exam Pre-op examination Inguinal hernia of left side without obstruction or gangrene Venous insufficiency Flank pain Chest pain Knee pain, right Left flank pain Mid-back pain, acute Gout Hyperlipidemia HTN (hypertension) Surgical History (Updated 05/23/25 @ 15:48 by COLIN Madden) H/O left inguinal hernia repair Hx of colonoscopy Family History Father No problems noted. Mother No problems noted. 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 Current occupational exposures/hazards: No Cognitive needs: No Hearing needs: No Vision needs: No Review of Systems Const Denies fatigue, Denies fever(s), Denies night sweats, Denies poor appetite and Denies weight loss ENT Reports Normal hearing present, Denies dental pain, Denies dysphagia, Denies hearing loss, Denies mouth pain, Denies odynophagia, Denies throat swelling, Denies tongue swelling and Reports other (Dentition adequate) Card Reports no additional complaints Resp Reports no additional complaints GI Details: Denies abdominal pain, Denies melena, Denies bloating, Reports hematochezia, Reports constipation, Denies GI cramping, Denies dysphagia, Denies excessive flatus, Denies early satiety, Denies heartburn, Denies diarrhea, Denies nausea, Denies odynophagia, Denies vomiting and Denies hematemesis Skin/Breast Denies pruritus, Denies lesions, Denies rash and Denies jaundice Neuro Reports Normal hearing present and Denies Abnormal speech present Endo Denies fatigue Aller/Immun Denies throat swelling and Denies tongue swelling Physical Exam Vital Signs: Last Vital Signs Pulse 67 05/23/25 15:32 BP 136/77 05/23/25 15:32 BMI result Body Mass Index 29.7 Const General: cooperative, no acute distress, well developed and well groomed Nutritional Appearance: well nourished and overweight Orientation/consciousness: oriented to person, oriented to place and oriented to time Limitations: No language barrier HEENT Head: Yes normocephalic and Yes atraumatic Eyes General: appearance normal, both eyes and all related structures Pupils: Equal, round and reactive pupils present Neck Neck: Yes normal visual inspection and Yes no lymphadenopathy Thyroid: Thyroid normal Resp Effort & Inspection: normal respiratory effort and able to speak in complete sentences Auscultation: clear to auscultation bilaterally Cardio Rate: regular rate Rhythm: regular rhythm Heart sounds: Normal, physiologic split S2 sound present Peripheral pulses: radial pulses present and posterior tibial pulses present GI Inspection: No distended, No Abdominal panniculus present and Yes obesity Palpation (GI): Soft to palpation, nontender, no guarding, not rigid and No hepatosplenomegaly present Percussion: Yes normal to percussion Auscultation: normal bowel sounds Rectal Exam - Male: Yes deferred Skin General skin exam: no rashes or lesions noted, turgor normal, skin not dry, no jaundice, No spider nevi and no striae Rashes: no rashes Nails: normal Neuro General: oriented to person, oriented to place and oriented to time Cranial nerves: Yes Equal, round and reactive pupils present and Yes Normal hearing present Speech: No Abnormal speech present Extrem General: Yes normal to inspection, No clubbing, No cyanosis and No edema Psych Appearance: grossly normal and well kempt Mental Status: mental status grossly normal Speech and movement: Normal speech and movement present Affect: normal affect Attitude: cooperative Thought process: Normal thought process present and not confabulating Thought content: Normal thought content present Insight: Good insight present (Psych) Judgement: Good judgement present (Psych) Results Reviewed Results Reviewed: COLONOSCOPY 08/30/2024 Findings: Mucosa: Normal to cecum and terminal ileum. Protruding lesions: 1 sessile polyp of size 6 mm in ascending colon. Cold snare polypectomy was performed. The polyp was completely removed and retrieved. 1 sessile polyp of size 5 mm in transverse colon. Cold snare polypectomy was performed. The polyp was completely removed and retrieved. 1 sessile polyp of size 7 mm in sigmoid colon. Cold snare polypectomy was performed. The polyp was completely removed and retrieved. Large internal hemorrhoids without stigmata of recent bleeding. Impression: 1. Normal colon and terminal ileum mucosa 2. Total of 3 polyps removed 3. External and internal hemorrhoids Recommendations: - Follow path results. - Repeat colonoscopy in 3 years if all polyps are adenomas, otherwise 7 years. BIOPSY Received: 08/30/24 Diagnosis A. Colon, ascending, polypectomy: Fragments of sessile serrated lesion/polyp; negative for cytologic dysplasia. B. Colon, transverse, polypectomy: Sessile serrated lesion/polyp; negative for cytologic dysplasia. C. Colon, sigmoid, polypectomy: Hyperplastic mucosal polyp. Assessment & Plan Assessment & Plan (1) Tubular adenoma of colon: Comment: 08/2024 scope= 2 TA is and 1 hyperplastic polyp repeat in 5 years Code(s): D12.6 - Benign neoplasm of colon, unspecified Category: Medical (2) Hemorrhoids: Comment: large internal hemorrhoids likely cause of bleeding Code(s): K64.9 - Unspecified hemorrhoids Category: Medical Plan The patient was very concerned because he had bleeding episodes twice since the colonoscopy. He was fearful that his polyps were going back, that I explained that this is not the cause. He has rather large internal hemorrhoids. Once I tell him that he is relieved because he says he has a history of hemorrhoids a few years back that were like ?little buds? outside of the rectum. I explained that hemorrhoids can be internal or external, and they tend to bleed if the stool is hard or if your straining. The cigarette is to keep the stool soft and to avoid straining. We also discussed the efficacy of [id number] preparation H suppositories as they can be quite helpful if there used if least twice a day for 2 weeks straight. With this he is quite relieved. If he has trouble where he can not control the bleeding or if he has trouble controlling his stooling he is always welcome back to our service. Otherwise he is agreeable to a 5 year follow-up. The procedure was well tolerated. The results were explained and the patient is agreeable to the follow-up interval as stated. The bowel pattern has returned to normal. Education was provided to tell any 1st degree relatives about their findings to be sure that they are screened by age 45. Educated that they will be put on a recall list when it is time for their repeat scope but should they move out of state or away from the hospital they will need to remember along with their primary to repeat the procedure in a timely fashion to avoid any adverse complications. Coding Level of Care Code Est Pt Level 3 (61902) Diagnoses Tubular adenoma of colon D12.6 Hemorrhoids K64.9
[2025-05-23 15:32] VITALS: BP 136/77; PULSE 67; BMI 29.7
--- OUTSIDE RECORDS SUMMARY | 2025-05-23 18:36 | XMS_ITS | Clinical Summary ---
Author Organization [facility] ity Address [address] [place] [address] Care Team Providers Care Client Success Manager Name Role Phone Unavailable Primary Care Provider [...] 5 season) 2025 Influenza Vaccine (#1) 2025 RSV Immunization Adult Patie nts (1 - 1-dose 75+ series) 2048 HIB Vaccines Aged Out No longer eligi [...]
== END 2025-05-23 15:57 | disposition home or self-care (01) ==
LOC: HO.HGI 15:27
PROVIDERS: PCP Internal Medicine; Visit Provider Nurse Practitioner
DX: D12.6 Benign neoplasm of colon, unspecified (principal); K64.9 Unspecified hemorrhoids
CPT/HCPCS: 99213